=== PATIENT | male | born 1950 | race Caucasian/White ===

== ENCOUNTER 2024-08-26 00:45 | Inpatient (IN) | payer OTHER, SELFPAY ==
[2024-08-25 20:36] VITALS: BP 146/73; BMI 20.5
[2024-08-25 20:56] LABS: % Basophils 0.5 % (0-2); % Eosinophils 2.4 % (0-6); % Immature Granulocytes 0.6 % (0-0.5); % Lymphocytes 23.3 % (20.5-51.1); % Monocytes 9.9 % (1.7-9.3); % Neutrophils 63.3 % (42.2-75.2); Absolute Basophils 0.1 10^3/uL (0-0.2); Absolute Eosinophils 0.3 10^3/uL (0-0.7); Absolute Immature Granulocytes 0.1 10^3/uL (0-0.05); Absolute Lymphocytes 2.5 10^3/uL (1.2-3.4); Absolute Monocytes 1.1 10^3/uL (0.1-0.6); Absolute Neutrophils 6.9 10^3/uL (1.4-6.5); Hematocrit 37.7 % (39.0-52.0); Hemoglobin 13.3 g/dL (13.0-18.0); Mean Corp Hgb Conc. 35.3 g/dL (33.0-37.0); Mean Corpuscular Hgb 34.1 pg (27.0-31.0); Mean Corpuscular Volume 96.7 fL (80.0-94.0); Mean Platelet Volume 9.1 fL (7.4-10.4); Nucleated Red Blood Cells % 0 % (-); Platelet Count 206 10^3/uL (130-400); Red Cell Dist. Width 12.4 % (11.5-14.5); White Blood Cell Count 10.9 10^3/uL (4.8-10.8)
[2024-08-25 20:57] LABS: Glucose - Point of Care 119 mg/dl (70-99)
[2024-08-25 21:11] LABS: Blood Urea Nitrogen 18 mg/dl (9-20); Calcium 9.2 mg/dl (8.4-10.2); Carbon Dioxide 29 mmol/L (22-30); Chloride 99 mmol/L (98-107); Estimated Creatinine Clearance 106 ml/min; Glucose 122 mg/dl (70-99); Sodium 134 mmol/L (135-145); eGFR > 60.00
--- NOTE | 2024-08-25 21:14 | ED.GENMED ---
History of Present Illness
General
Chief Complaint: Change in Mental Status
Source: patient, family and ambulance crew
Time Seen by Provider: 08/25/24 20:41
History of Present Illness
History of Present Illness:
73-year-old male presents via ambulance for evaluation of a possible syncopal event. Patient noted also to have new onset right sided facial droop after this event. Patient has been residing with his son recently. He is under evaluation for.
Thinks she has some cognitive decline recently. Tonight he had a couple hits off of a marijuana cigarette. Shortly thereafter he seemed to be confused. He seemed to lean forward and then perhaps passed out. He regained consciousness after a few
seconds and then seemed confused. He was noted to have right facial droop at that time. 911 was called. On arrival here to the emergency room the patient is awake but does seem confused or under the influence of marijuana. He is able to answer
most questions appropriately. He follows commands. He offers no complaints.
Past History
Past History
ED Past Medical History: HTN, Hypercholesterolemia, NIDDM and Other (: Polyps, right bundle branch block)
ED Past Surgical History: Other (Hernia, carpal tunnel)
Social History
Tobacco: Smoker
Family History
Family History: CAD
Phy Exam
Physical Exam
Physical Exam:
General: Awake, Alert, Oriented X2. Seems somewhat confused or under the influence of marijuana but able to answer most questions appropriately
Vitals: unremarkable
Head: Atraumatic
Eyes: Pupils equal, EOMI
Throat: Airway intact, no exudates
Neck: Trachea midline
Lungs: Clear and equal b/l
Heart: Regular rate, no murmurs
Abd: Soft, Nontender, No pulsatile mass
Neuro: Very mild right facial droop, muscle strength equal bilaterally, cerebellar exam normal
Skin: Warm, dry, no rash
Extremities: pulses equal b/l, no edema
Scores
NIH Stroke Score
Level of Consciousness: 0 - Alert
LOC Questions: 0-Answers both correctly
LOC Commands: 0-Performs both correctly
Best Horizontal Gaze: 0-Normal
Visual [place]: 0=Normal, no visual loss
Facial Palsy: 1=Minor paralysis
Motor - Right Arm: 0=No drift 10 seconds
Motor - Left Arm: 0=No drift 10 seconds
Motor - Right Le-No drift 5 seconds
Motor - Left Le-No drift 5 seconds
Limb Ataxia: 0-Absent
Sensation: 0-Normal
Best Language: 0-No aphasia
Dysarthria: 1-Mild slurring
Extinction and Inattention: 0-No abnormality
NIH Total Score:: 2
Course
Orders/Labs/Results
Orders:
Orders
08/25/24 20:47
Electrocardiogram (*1) Urgent
Reason for Study: Other
Other Reason for Exam: change in mental status
08/25/24 20:48
EKG- Treatment ONCE
08/25/24 20:50
Basic Metabolic Panel Urgent
Complete Blood Count/With Diff Urgent
08/25/24 20:53
CT HEAD STROKE ALERT W/o Cont Urgent
Comment:
Reason For Exam: right facial droop
CT HEAD/NECK ANG STROKE ALERT Urgent
Comment:
Reason For Exam: right facial droop
08/25/24 21:19
Comprehensive Metabolic Panel Urgent
08/25/24 22:19
Aspirin Chewable [Low Strength Aspirin] 324 mg PO NOW STA
08/25/24 23:00
Flush (0.9% Sodium Chloride) [Flush (Nss)] See Dose Instructions IV PER PROTOCOL
Abnormal Lab Results
08/25/24 08/25/24 08/25/24
20:50 20:55 21:19
WBC 10.9 H 10^3/uL
(4.8-10.8)
RBC 3.90 L 10^6/uL
(4.70-6.10)
Hct 37.7 L %
(39.0-52.0)
MCV 96.7 H fL
(80.0-94.0)
MCH 34.1 H pg
(27.0-31.0)
Abs Immat Gran (auto) 0.1 H 10^3/uL
(0-0.05)
Absolute Neuts (auto) 6.9 H 10^3/uL
(1.4-6.5)
Absolute Monos (auto) 1.1 H 10^3/uL
(0.1-0.6)
Immature Gran % 0.6 H %
(0-0.5)
Monocytes % 9.9 H %
(1.7-9.3)
Sodium 134 L mmol/L 133 L mmol/L
(135-145) (135-145)
Chloride 97 L mmol/L
(98-107)
Carbon Dioxide 32 H mmol/L
(22-30)
Creatinine 0.5 L mg/dL 0.6 L mg/dL
(0.7-1.3) (0.7-1.3)
Glucose 122 H mg/dl 117 H mg/dl
(70-99) (70-99)
Total Protein 6.1 L g/dl
(6.3-8.2)
POC Glucose 119 H mg/dl
(70-99)
08/25/24 20:50
08/25/24 21:19
Vital Signs
Initial and Last Documented VS:
Initial Vital Signs
Temp Pulse Resp BP Pulse Ox
98.5 F 86 18 146/73 96
08/25/24 20:36 08/25/24 20:36 08/25/24 20:36 08/25/24 20:36 08/25/24 20:36
Last Documented Vital Signs
Temp Pulse Resp BP Pulse Ox
98.5 F 86 18 146/73 96
08/25/24 20:36 08/25/24 20:36 08/25/24 20:36 08/25/24 20:36 08/25/24 20:36
MDM/Problems Addressed
Differential Diagnosis Includes:
CVA, TIA, dysrhythmia, altered mental status for marijuana
MDM/Problems Addressed:
Patient presents with possible syncope versus effects of marijuana. Family does note that he has a new right-sided facial droop. NIH score is 1-2 with a mild right facial droop and perhaps slurred speech. CT and CTA were obtained. No acute
abnormalities on the plain CT. CT angiogram shows significant left carotid stenosis. In my estimation the patient's NIH score is below the threshold to give tPA particular given he is not having any debilitating effects. His NIH score is
certainly below the threshold for IAT. I discussed the patient's presentation with the stroke fellow on-call at [place] who agrees with my assessment. He recommends hospitalization for further neurology workup and potential vascular surgery workup
given degree of left carotid stenosis on the CTA..
Chronic conditions affecting care: DM and HTN
*Radiology
Radiology exam reviewed: radiology read reviewed
*Pulse Oximetry
Patient hypoxic: no
*EKG
Interpretation: normal
Heart Rate: 81
Rate: normal
Rhythm: sinus
[place]: normal axis
Interval: normal interval
QRS Pattern: right bundle branch block
Ischemia: non-specific ST changes
*Senior Web Architect Interpretation
Rate: normal
Interpretation: normal
Rhythm: sinus
*Critical Care Note
Total Time (30-74mins, 75-104mins- exclusive of procedures): 42min
comment:
Critical care statement: A total of 42 minutes of critical care time was provided for this patient. This includes management of unstable vital signs, evaluation of the patient at bedside, reviewing the patient's pertinent medical records, discussion
with consultants, review of old EKGs and review of pertinent medical records. This time with separate from time utilized to perform the aforementioned documented procedures
ED Attending Note
-
Portions of this chart may have been created with voice recognition software.� Occasional wrong word or��sound alike� substitutions may have occurred due to the inherent limitations of voice recognition software.
Discharge Plan
Departure
Patient Disposition: Admit
Date of Disposition: 08/25/24
Time of Disposition: 22:16
Admit to: Telemetry
Presentation/result/management discussed w/ accepting MD/DO: Hospitalist
Condition: Fair
Discharge Problem:
Syncope, Brain TIA
Referrals:
Walt Saldivar MD [Family Provider] -
Interventions
Interventions:
*Risk Screen - Suicide Last Done: 08/25/24 20:36
*General Assessment Last Done: 08/25/24 20:36
*Neglect/Abuse Screening Last Done: 08/25/24 20:36
*ED- Fall Risk Assessment Last Done: 08/25/24 20:36
*ED COVID-19 Vaccine History Last Done: 08/25/24 20:36
ED- Neurological Assessment Last Done: 08/25/24 21:11
ED Swallowing Screen Last Done: 08/25/24 21:11
Discharge Date and Time
Print Language: AUSTRALIAN
[2024-08-25 21:47] LABS: ALT (SGPT) 49 U/L (0-50); AST (SGOT) 31 U/L (17-59); Albumin 3.9 g/dl (3.5-5.0); Alkaline Phosphatase 75 U/L (38-126); Blood Urea Nitrogen 18 mg/dl (9-20); Carbon Dioxide 32 mmol/L (22-30); Chloride 97 mmol/L (98-107); Estimated Creatinine Clearance 106 ml/min; Glucose 117 mg/dl (70-99); Potassium 4.3 mmol/L (3.5-5.1); Sodium 133 mmol/L (135-145); Total Bilirubin 0.3 mg/dl (0.2-1.3); Total Protein 6.1 g/dl (6.3-8.2); eGFR > 60.00
[2024-08-25] MEDS: LOW STRENGTH ASPIRIN 324 MG PO (22:34)
--- NOTE | 2024-08-25 22:48 | HPS.HSE ---
Family Physician
-
Family Physician: Walt Saldivar MD
Chief Complaint
-
Right facial droop
History of Present Illness
73-year-old male via ambulance from his home in [place] where he has been residing with his son recently as he is under evaluation for cognitive decline recently. He reportedly took a couple hits off a marijuana cigarette then shortly after
seemed confused, seem to lean forward then possibly passed out for a few seconds after he regained consciousness he was still confused noted to have a right facial droop that is when his son called 911. The patient was found in the ER exam room out
of his bed ripping off monitor leads asking' why am I here'. Patient was told he was sent here for a stroke had a facial droop. Patient keeps repetitively asking why he is here he knows he is at [facility] he is oriented to year and
president [place] he thinks it is Tuesday he cannot recall anything that he did last. He tells me he lives with his ex- named Sharri. He also states that he drinks Coors light 32 ounces at least 4 days a week. Medical history of hypertension,
hyperlipidemia, seasonal allergies, anxiety, alcohol abuse, marijuana use, DM2, right CEA/carotid stenosis
Medical History
Past Medical History
Past Medical History: Reports Other
Additional Past Medical History:
hypertension
hyperlipidemia
seasonal allergies
anxiety
alcohol abuse
marijuana use
DM
right CEA/carotid stenosis
Past Surgical History: Reports Other
Additional Past Surgical History:
Hernia repair
Carpal tunnel repair
Right CEA
Social History
Tobacco: Smoker (Smokes cigars now prior 45-year 1 pack a day [place] cigarettes)
Drug: Marijuana (Smoked marijuana today)
Living: With Family (Currently living with his son while from his )
Employment: Not Employed
Family History
Family History: Other (Believes his brother)
Allergies / Home Medications
Allergies reflects when Allergies were last updated in [employer].
Home Medications with original date entered in [employer]
Allergy/Medication List:
Allergies
Allergy/AdvReac Type Severity Reaction Status Date / Time
No Known Allergies Allergy Verified 08/25/24 20:36
Home Medications
Aspir-81 10 mg PO DAILY 08/25/24
Flonase Allergy Relief 1 spray inhalation DIRECTED PRN Rhinorrhea 08/25/24
atorvastatin 40 mg tablet (Lipitor) 40 mg PO DAILY 08/25/24
citalopram 40 mg PO DAILY 08/25/24
clonazepam 0.5 mg PO DAILY PRN Anxiety 08/25/24
diltiazem HCl 0 mg PO DAILY 08/25/24
ezetimibe 10 mg PO DAILY 08/25/24
fexofenadine 180 mg PO DAILY PRN Seasonal allergies 08/25/24
lisinopril 10 mg PO DAILY 08/25/24
metformin 500 mg PO BID 08/25/24
Review of Systems
-
History Source: Patient
A 12 point ROS was completed and negative except as noted: Yes
Constitutional: Reports Other (Confusion asking why am I here thinks it is Tuesday cannot recall the last thing he did does know was 2024); Denies Fever or Chills
EENT: Denies Tearing or Runny Nose
Respiratory: Denies Cough or Trouble Breathing
Cardiac: Denies Chest Pain, Diaphoresis, Palpitations or Syncope
Abdomen/GI: Denies Abdominal Pain, Nausea or Vomiting
: Denies Dysuria, Frequency, Flank Pain, Incontinence or Difficulty Voiding
Musculoskeletal: Denies Joint Pain or Edema
Skin: Denies Itching or Rash
Neurological: Reports Other (Confusion repeating Y SD here); Denies Dizzy or Headache
Endocrine: Reports No Symptoms
Hematologic/Lymphatic: Reports No Symptoms
Psych: Reports Anxiety
Physical Exam
Vital Signs
Vital Signs
Temp Pulse Resp BP Pulse Ox
98.5 F 86 18 146/73 96
08/25/24 20:36 08/25/24 20:36 08/25/24 20:36 08/25/24 20:36 08/25/24 20:36
Physical Exam
General: Other (Confusion asking why am I here thinks it is Tuesday cannot recall the last thing he did does know was 2024)
HEENT: NormoCephalic, Anicteric, Moist mucous membranes, PERRLA, [place] Conjunctivae and No Ptosis
Respiratory: Clear; No Wheezes, Rales or Rhonchi
Cardiac: S1/S2 and Regular Rhythm; No Murmur, Rub, Gallop or Peripheral Edema
GI: Soft, Non Tender, Non Distended, Normal Bowel Sounds and No Hepatosplenomegaly
Rectal: Deferred by Provider
Genito-urinary: Deferred by me
Musculoskeletal: No Clubbing, No Cyanosis and No Edema
Skin: Warm; No Rash
Neuro: Awake, Alert, Oriented (Confusion asking why am I here thinks it is Tuesday cannot recall the last thing he did does know was 2024), No Motor Deficits, Nonfocal/grossly intact, Cranial Nerves Intact and No Sensory Deficits; No Slurred Speech,
Facial Droop, Tremors or Sedated
Psych: Calm
Laboratory Results
-
08/25/24 20:50
08/25/24 21:19
Laboratory Results
Total Bilirubin 0.3 mg/dl (0.2-1.3) 08/25/24 21:19
AST 31 U/L (17-59) 08/25/24 21:19
ALT 49 U/L (0-50) 08/25/24 21:19
Alkaline Phosphatase 75 U/L (38-126) 08/25/24 21:19
Impression/Plan
-
Admit to telemetry
#Right facial droop concern for CVA due to CRITICAL STENOSIS >90% LEFT CAROTID BULB / PROXIMAL LEFT ICA
Aspirin 324 mg given in ER
-Continue aspirin 81 mg daily, Lipitor 40 mg every afternoon
- Consult neurology
- Consult vascular surgery
- Check lipid profile, HgbA1c
-MRI brain
CT head and neck: Moderate irregularity and MOD NARROWING of a LEFT MCA anterior M2 branch
No focal aneurysm
Nasal septal perforation scattered ethmoid maxillary sinus mucosal thickening
Angiogram neck: Critical stenosis> 90% of the LEFT carotid bulb and Proximal Left ICA
Moderate atheromatosis calcification left carotid bulb and proximal internal carotid artery greater than 90% narrowing,
near occlusion of the bulb and proximal ICA
Multiple vascular clips about the right carotid bulb and proximal ICA
Calcification with severe narrowing at the origin of the left vertebral artery
Degenerative changes of the spine
Numerous tiny peripheral nodules in the visualized upper lungs
Moderate distention of the esophagus with small amount of intraluminal debris in the visualized upper thorax,
correlate with underlying esophageal dysmotility or reflux
#Acute confusion possibly secondary to CVA versus Marijuana use
#? Cognitive impairment according to ER chart is staying with son being worked up for this
- Per son smoked a Marijuana cigarette then became confused and fell
- Check UDS
- Give Ativan 0.5 mg now as patient is attempting to climb out of bed
#Alcohol abuse
Patient reports 32 ounce beer at least 4 times a week
-Check alcohol level due to current confusion
MSAs screen with protocol
#HTN�benign
BP 146/73
- Continue lisinopril 10 mg daily
#HLD
- Check lipid profile
- Continue atorvastatin 40 mg daily
#DM 2
Accu-Cheks with SSI, check HgbA1c
Hold metformin 500 mg twice daily(patient picked up on 07/20/2024 at [facility])
Active smoker
- Cessation advised
Prior cigarette smoker [place] 1 pack a day x 45 years
RBBB Hx
Dvt proph
Lovenox
Unable to reach patient's ex- he lives with Sharri as he goes straight to filled voicemail Impression/plan:
[2024-08-26] VITALS (9 sets, daily range): BP systolic 98–135; BP diastolic 60–83; PULSE 85; O2SAT 95; BMI 20.3
--- NOTE | 2024-08-26 00:12 | W.PN.UPDATE ---
Update Note
Progress Note Update
Patient seen in conjunction with CHRISTINA. I agree the findings and physical. I concur with assessment plan.
Briefly, this is 73-year-old who has past medical history of a carotid stenosis presents status post prior right carotid endarterectomy, hyperlipidemia, hypertension and [id number] diabetes who presents to the emergency department with
altered mental status and possible right facial droop. Patient is a very poor historian and unable to provide much history. Apparently he had obstructive sleep smoke something that contained marijuana and immediately after this episode he
collapsed to the floor and was unresponsive for very brief period. Nobody noted any seizure-like activity. When he came back to he became very very confused and was transferred to the emergency department. He apparently lives with his significant
other who was not available at the emergency room or by phone. In the emergency room was moving all fours spontaneously and he had no focal deficits. However he remained quite confused and vigilant and agitated. He was very forgetful, very alert
but only oriented to person and place at this time. He was able to briefly describe some of his medications before he became very frustrated. He denied any other symptoms. We able to get history of alcohol use with the patient saying that he
drinks about 32 ounces of light beer almost daily or at least 4 times a week. He has no recollection of any history of withdrawal or withdrawal seizures.
In the emergency department the patient was afebrile, blood pressure was 146/65 with a pulse of 86 and was satting 96% on room air. ECG pending. CT of the head was unremarkable. He had a CT angio of the head and neck which shows a greater than
90% stenosis in the distribution of the left internal carotid artery near the carotid bulb. CBC was unremarkable stop electrolytes BUN/creatinine were stable. LFTs were normal.
Assessment and plan,
patient with altered mental status, possible syncopal episode, found to have a slight right facial droop with critical left internal carotid artery stenosis on CT angio. Cannot rule out CVA. There is also the possibility of chronic memory loss
secondary to undiagnosed dementia with some toxic metabolic encephalopathy and alcohol withdrawal.
CVA
- Admit to telemetry
- Aspirin 324 given
- Continue statin and aspirin 81 daily
- Plavix per neuro in the morning
- MRI, echo
- Neurochecks Q6
-Check lipid panel and A1c
- Speech and swallow eval
- PT OT
- Neurology consultation
Carotid stenosis -greater than 90% stenosis in the left internal carotid artery
- Aspirin/statin
- Likely will need Plavix
- Vascular consultation
EtOH -chronic use likely dependent, no known history of withdrawal. Patient is fairly hypervigilant at this time although confused
- EtOH last use unknown, levels pending
- Start with low-dose M/protocol and titrated as needed
-IV fluids with
- Thiamine and folate supplementation
Toxic metabolic encephalopathy/confusion
- Urine drug screen
- UA
- TSH, B12, folate levels
- Check RPR
Diabetes
-Hold metformin x 48 hours
-Sliding scale insulin for now
Hypertension
-Holding diltiazem unknown dose, cannot confirm with pharmacy at this time
-Continue with lisinopril 10 mg daily
Social
- Unable to reach family member, may need case management or social work for next of kin
DVT prophylaxis - lovenox
CODE STATUS�full code
[2024-08-26] MEDS: NSS (PRESERVATIVE FREE) 0.25 ML IV (00:21)
[2024-08-26] MEDS: ATIVAN 0.5 MG IV (00:21)
[2024-08-26 00:34] LABS: Alcohol None Detected
[2024-08-26 00:58] LABS: Troponin I < 0.012 ng/ml
[2024-08-26] MEDS: ATIVAN 1 MG IV (01:35)
[2024-08-26] MEDS: THIAMINE INJECTION 200 MG IV ×3 (02:39→15:02)
[2024-08-26 03:43] LABS: Glucose - Point of Care 138 mg/dl (70-99)
[2024-08-26 04:49] LABS: Hematocrit 36.9 % (39.0-52.0); Mean Corp Hgb Conc. 35.2 g/dL (33.0-37.0); Mean Corpuscular Hgb 33.6 pg (27.0-31.0); Mean Corpuscular Volume 95.3 fL (80.0-94.0); Mean Platelet Volume 8.9 fL (7.4-10.4); Platelet Count 207 10^3/uL (130-400); Red Blood Cell Count 3.87 10^6/uL (4.70-6.10); Red Cell Dist. Width 12.4 % (11.5-14.5); White Blood Cell Count 13.2 10^3/uL (4.8-10.8)
[2024-08-26 04:51] LABS: Urine Albumin Negative (Neg - Trace); Urine Bilirubin Negative (Negative); Urine Character Clear (Clear); Urine Color Yellow; Urine Glucose Negative (Negative); Urine Ketone Negative (Negative); Urine Leukocyte Negative (Negative); Urine Nitrite Negative (Negative); Urine Occult Blood Negative (Negative); Urine Specific Gravity 1.005 (<1.030); Urine Urobilinogen Negative (Neg - 1+)
[2024-08-26 04:59] LABS: INR 0.99; PT 13.4 Sec (11.4-14.6)
--- NOTE | 2024-08-26 04:59 | PTCARENOTE ---
Patient arrived from the ED via stretcher at approximately 0145. Patient pulled over from stretcher to bed x3 assist. Patient AAOx1 - self only. Patient confused with periods of restlessness and drowsiness and not consistently following commands.
Patient with possible hallucinations as patient was grabbing at things that were not there. NIH completed upon admission - NIH score of 7 - See worklist for complete assessment. CLIENT EXPERIENCE ADMINISTRATOR notified of difference in NIH score from ED. CLIENT EXPERIENCE ADMINISTRATOR to bedside to assess
patient. No new orders at that time. VSS as documented. Assessment as documented. Patient oriented to room. Bed in lowest position. Bed alarm in place for patient safety. Call antonio within reach.
[2024-08-26 05:00] LABS: APTT 29.4 Sec (23.4-35.0)
[2024-08-26 05:06] LABS: Amphetamines Negative (Negative); Barbiturates Negative (Negative); Benzodiazepines Positive (Negative); Buprenorphine Negative (Negative); Cocaine Negative (Negative); Marijuana Positive (Negative); Methadone Negative (Negative); Methamphetamines Negative (Negative); Opiates Negative (Negative); Phencyclidine Negative (Negative); Tricyclic Antidepressants Negative (Negative)
[2024-08-26 05:09] LABS: Blood Urea Nitrogen 15 mg/dl (9-20); Calcium 9.3 mg/dl (8.4-10.2); Carbon Dioxide 32 mmol/L (22-30); Chloride 99 mmol/L (98-107); Estimated Creatinine Clearance 105 ml/min; GGTP < 10 U/L (15-73); Glucose 108 mg/dl (70-99); Phosphorus 4.9 mg/dl (2.5-4.5); Potassium 4.5 mmol/L (3.5-5.1); Sodium 134 mmol/L (135-145); eGFR > 60.00
[2024-08-26 05:17] LABS: B-Hydroxybutyrate 0.16 mmol/L (0.02-0.27)
[2024-08-26 05:23] LABS: Troponin I < 0.012 ng/ml
[2024-08-26 05:26] LABS: Fentanyl, Urine Negative (Negative)
[2024-08-26 07:45] LABS: Glucose - Point of Care 126 mg/dl (70-99)
[2024-08-26] MEDS: CELEXA 40 MG PO (08:04)
[2024-08-26] MEDS: ASPIR LOW (ENTERIC COATED) 81 MG PO (08:04)
[2024-08-26] MEDS: FOLVITE 1 MG PO (08:04)
[2024-08-26] MEDS: LIPITOR 40 MG PO (08:16)
[2024-08-26] MEDS: ZESTRIL PO (08:16)
[2024-08-26] MEDS: DESENEX/MITRAZOL/ZEASORB 1 APPLIC TOPICAL ×2 (08:18→19:39)
--- NOTE | 2024-08-26 09:57 | CON.VAS ---
Consultation
Consultation Request
Date/Time Consultation Performed: 08/26/24
Requesting Provider: Milton
Performing Provider: Mikel
Reason for Consultation: Left carotid stenosis
Medical History
-
Chief Complaint: down - called 911 (son called)
History of Present Illness:
Note patient unable to give me or provide me any history. Patient's son, Rick, at bedside provided history. 73-year-old male with known history of chronic progressive dementia is living currently with his son Rick secondary to patient's
having suffered a fracture and they are needing assistance. Rick noted that yesterday they were sitting on the deck, when suddenly patient seemed to be slumping downward forward. Unable to straighten himself. Kept repeating the phrase 'broken
glass.' Rick tried to sit him up and straighten him, but then patient appeared to pass out. Called 911. Paramedics arrived and while he was being transported patient more responsive. But still not clearly responding or answering questions. Per
patient's son, he does have progressive dementia and therefore memory issues as well as overall cognitive loss. However, this episode was an acute and different episode. Rick did not notice any unilateral numbness or weakness at the time
definitively. Per hospital charting there are notes regarding facial droop. When I asked Rick about whether the patient had a facial droop, he was a little unclear as to whether he had it at that time but he does note that the patient has
episodes where his face appears to be asymmetric and when he questions his dad about it his dad notes that his lips are dry. Patient has had a history of right carotid endarterectomy prior for what sounds like asymptomatic carotid stenosis. This
was in 2019. They had discussed revascularizing left carotid. However pandemic occurred, and then this got put on hold.
Note his son relayed to me that patient has been told he has peripheral arterial disease, and they have been keeping an eye on it, but no interventions were rendered prior. No coronary interventions or NH per the patient's son Rick.
Past Medical History
Past Medical History: HTN, Hypercholesterolemia and Other (Chronic progressive dementia)
Past Surgical History: Other (Right carotid endarterectomy, Hernia, carpal tunnel)
Social History
Tobacco: Smoker (currently <1ppd, per son prior up to 1ppd )
Alcohol: Former (Prior drank up to 6pack of beer daily)
Family History
Family History: Unable to Obtain
Allergies / Home Medications
Allergy/AdvReac Type Severity Reaction Status Date / Time
No Known Allergies Allergy Verified 08/25/24 20:36
�Medication �Instructions �Recorded �Confirmed �Type
Aspir-81 10 mg PO DAILY 08/25/24 08/25/24 History
Flonase Allergy Relief 1 spray inhalation DIRECTED PRN 08/25/24 08/25/24 History
Rhinorrhea
atorvastatin 40 mg tablet (Lipitor) 40 mg PO DAILY 08/25/24 08/25/24 History
citalopram 40 mg PO DAILY 08/25/24 08/25/24 History
clonazepam 0.5 mg PO DAILY PRN Anxiety 08/25/24 08/25/24 History
diltiazem HCl 0 mg PO DAILY 08/25/24 08/25/24 History
ezetimibe 10 mg PO DAILY 08/25/24 08/25/24 History
fexofenadine 180 mg PO DAILY PRN Seasonal 08/25/24 08/25/24 History
allergies
lisinopril 10 mg PO DAILY 08/25/24 08/25/24 History
metformin 500 mg PO BID 08/25/24 08/25/24 History
Physical Exam
Vital Signs
Temp Pulse Resp BP Pulse Ox
97.1 F 71 16 109/71 94
08/26/24 07:35 08/26/24 08:16 08/26/24 07:35 08/26/24 08:16 08/26/24 07:35
He is awake. He is lethargic. He slightly arouses when I try to wake him. But I cannot get a reasonable neurologic exam. He appears to move all extremities but I cannot say definitively. His feet are both warm without rubor or ulcerations. I
difficulty examining femoral pulses as he kept moving on me.
Lab Results
08/26/24 04:31
08/26/24 04:32
Troponin I < 0.012 ng/ml 08/26/24 04:31
Physical Exam
General: Other (Lethargic, not communicative currently)
HEENT: Normocephalic, Anicteric and Moist Mucous Membranes
Respiratory: Non Labored Respirations
Skin: Warm and Dry
Neuro: Other (see above)
Assessment / Plan
-
Left carotid artery stenosis. I reviewed his CT scan that demonstrates heavy bulky calcified chronic plaque at the left proximal internal carotid artery. Very heavy plaque, likely results in severe stenosis. But this appears all chronic. Does
not appear to have soft plaque elements from what I can ascertain. Based on his symptomatology and presentation (confounded with underlying baseline dementia), I am not sure that this is a focal neurologic event but I cannot say for sure. What I
would recommend is that neurology sees him and assesses him for a focal neurologic event. I would agree with an MRI. Per the patient's son he did complete an MRI a couple weeks ago as ordered by the primary care team for evaluation due to his
chronic dementia. At that time there was no evidence of any infarcts. However would definitely proceed with MRI now. Discussed with Rick that if it is felt that his symptoms have resulted from left carotid stenosis, may benefit from
revascularization, and would favor carotid endarterectomy based on the appearance of his plaque. Discussed with Rick that I would discuss further with him if carotid endarterectomy is recommended. However again we will await neurology evaluation
and full medical optimization. If requires revascularization, likely would plan surgery 08/29/2024. But again we will await further workup.
Data Reviewed
-
CT Scan: Image Personally Visualized and interpreted and Report Reviewed by me
Ultrasound: Discussed with Family
--- NOTE | 2024-08-26 11:16 | CM ---
Patient in MRI. Initial assessment completed with son, Rick. Patient and his ex- live in a 2 story project coach house with B/B on 2nd, no 1/2 bath on 1st, with 2 steps to enter. [employer] patient was independent in ADL's and ambulation. He does drive
short distances. Has a CPAP and does use most of the time. No other DME. No services in the home. Not working. No HC POA. No service. Support system is ex-, son and 2 daughters.
One daughter lives in the area, the other in [place]. Ex- recently broke her leg. Son reports that in the past patient drank heavily but now drinks occasionally if out to dinner etc. Son also reports that patient is being worked up for dementia
with PCP. Patient is forgetful and gets confused. Repeatedly asks same questions. Patient and ex- live on SSI only. They do pay their bills but at times the children assist with money for food. Son requested advanced directive packet for
patient and ex-. CM explained that patient must be able to respond to questions and understand the content. Forms are not to be completed for the patient. Expressed understanding. Also provided the [employer] website. PCP is Dr. Godoy
[facility] and Pharmacy is [facility] in [place]. Discharge POC: TBD. Waiting for therapy evaluation.
--- NOTE | 2024-08-26 11:24 | PTCARENOTE ---
Patient AAO to self this AM, mild R facial droop and exp aphasia - see NIH documentation. Patient for brain MRI this AM, assist x1-2 stand and pivot to stretcher, generalized weakness. PT/OT and speech consults in place, patient with no diet order
at this time, took pills whole/crushed in applesauce with sips of water this AM with this RN, tolerated PO medications but drowsy/needs frequent verbal/tactile stimuli to stay awake during care. Patient with no diet until speech eval per MD. Patient
NSR on tele monitor, VSS, mixed continence of urine, able to use urinal this AM with tech. Vascular in to see patient this AM, son at bedside updated on plan of care.
--- NOTE | 2024-08-26 11:39 | CON.NEURO ---
Neuro Assessment/Plan
Assessment
brain MRI imgs and rept rev'd, mild atrophy and microvascular changes, no stroke
CTA head/neck imgs and rept rev'd, left carotid bulb >90% stenosis
Right facial droop and mild right sided deficits on exam, which could represent TIA, stroke too small to see on MRI, or cerebral hypoperfusion, due to symptomatic left carotid
Spoke with Dr Morin and agree that CEA next week is appropriate.
Moderate dementia.
Plan
continue ASA 81, Lipitor 40
Load Plavix 300, Start Plavix 75
agree CEA
Consultation
Order
Date of Consultation: 08/26/24
Requesting Provider: Mayito Rose
Reason for Consult: TIA
Subjective/Objective
Subjective Data
Date of Service: August 26, 2024
from h&p:
73-year-old male via ambulance from his home in [place] where he has been residing with his son recently as he is under evaluation for cognitive decline recently. He reportedly took a couple hits off a marijuana cigarette then shortly after
seemed confused, seem to lean forward then possibly passed out for a few seconds after he regained consciousness he was still confused noted to have a right facial droop that is when his son called 911. The patient was found in the ER exam room out
of his bed ripping off monitor leads asking' why am I here'. Patient was told he was sent here for a stroke had a facial droop. Patient keeps repetitively asking why he is here he knows he is at [facility] he is oriented to year and
[place] he thinks it is Tuesday he cannot recall anything that he did last. He tells me he lives with his ex- named Sharri. He also states that he drinks Coors light 32 ounces at least 4 days a week. Medical history of hypertension,
hyperlipidemia, seasonal allergies, anxiety, alcohol abuse, marijuana use, DM2, right CEA/carotid stenosis
patient unable to provide much history. His son reports baseline level of function independent with basic ADLs, needs prompting to change clothes/shower, does not do any chores/manage own affairs. Presently mentating similar or slightly worse than
home due to unfamiliar environment
Objective Data
Vital Signs
Temp Pulse Resp BP Pulse Ox
36.8 C 72 16 105/70 95
08/26/24 11:08 08/26/24 11:08 08/26/24 11:08 08/26/24 11:08 08/26/24 11:21
Lab Results
08/26/24 04:31
08/26/24 04:32
PT 13.4 Sec (11.4-14.6) 08/26/24 04:30
INR 0.99 08/26/24 04:30
APTT 29.4 Sec (23.4-35.0) 08/26/24 04:30
Sodium 134 mmol/L (135-145) L 08/26/24 04:32
Potassium 4.5 mmol/L (3.5-5.1) 08/26/24 04:32
BUN 15 mg/dl (9-20) 08/26/24 04:32
Glucose 108 mg/dl (70-99) H 08/26/24 04:32
Calcium 9.3 mg/dl (8.4-10.2) 08/26/24 04:32
Phosphorus 4.9 mg/dl (2.5-4.5) H 08/26/24 04:32
Ur Buprenorphine Negative (Negative) 08/26/24 04:33
Patient Allergies
No Known Allergies Allergy (Verified 08/25/24 20:36)
Physical Exam
-
Awake and alert, disoriented to age/month/place, mildly aphasic, poor recollection of recent events
VFF, EOMI, obvious facial droop on smiling
subtle weakness RUE/LE
mild vibratory loss on the right UE/LE, mild loss of pinprick LUE
DTR 1+ upper, 2+ knees
Medications
-
Active Medications
Generic Name Dose Route Start Last Admin
Trade Name Freq PRN Reason Stop Dose Admin
Acetaminophen 650 mg 08/26/24 01:45
Acetaminophen 325 Mg Tablet PO 09/23/24 01:44
Q4HPRN PRN
mild pain/AMANDA/temp> 100.4F
Aspirin 81 mg 08/26/24 08:00 08/26/24 08:04
Aspirin 81 Mg (Enteric Coated) Tablet PO 09/23/24 07:59 81 mg
DAILY LAURA Administration
Atorvastatin Calcium 40 mg 08/26/24 08:00 08/26/24 08:16
Atorvastatin (Lipitor) 40 Mg Tablet PO 09/23/24 07:59 40 mg
DAILY LAURA Administration
Citalopram Hydrobromide 40 mg 08/26/24 08:00 08/26/24 08:04
Citalopram 20 Mg Tablet PO 09/23/24 07:59 40 mg
DAILY LAURA Administration
Enoxaparin Sodium 40 mg 08/26/24 18:00
Enoxaparin Sodium 40 Mg/0.4 Ml Syringe SC 09/23/24 17:59
QPM LAURA
Folic Acid 1 mg 08/26/24 08:00 08/26/24 08:04
Folic Acid 1 Mg Tablet PO 09/23/24 07:59 1 mg
DAILY LAURA Administration
Folic Acid 1 mg/ Sodium 50.2 mls @ 200.8 mls/hr 08/26/24 01:45
Chloride IV 09/23/24 01:44
DAILYPRN PRN
if NPO
Lisinopril 10 mg 08/26/24 08:00 08/26/24 08:16
Lisinopril 10 Mg Tablet PO 09/23/24 07:59 Not Given
DAILY LAURA
Lorazepam 1 mg 08/26/24 01:45
Lorazepam 1 Mg Tablet PO 09/23/24 01:44
Q2HPRN PRN
MSAS 5-7
Lorazepam 1 mg 08/26/24 01:45
Lorazepam 2 Mg/Ml Vial IV 09/23/24 01:44
Q1HPRN PRN
MSAS 8-11
Lorazepam 2 mg 08/26/24 01:45
Lorazepam 2 Mg/Ml Vial IV 09/23/24 01:44
Q1HPRN PRN
MSAS > 11
Miconazole Nitrate 0 applic 08/26/24 08:00 08/26/24 08:18
Miconazole Powder Bottle TOPICAL 09/23/24 07:59 1 applic
BID LAURA Administration
Sodium Chloride 0 flush 08/25/24 23:00
Sodium Chloride 0.9% (Flush) Syringe IV 09/22/24 22:59
PER PROTOCOL LAURA
Sodium Chloride 0 ml 08/26/24 01:45
Sodium Chloride 0.9% (Preservative Free) 10 Ml Vial IV 09/23/24 01:44
PRN PRN
To dilute IV Ativan
Protocol
Thiamine HCl 200 mg 08/26/24 01:45 08/26/24 08:06
Thiamine (100 Mg/Ml) 2 Ml Vial IV 08/28/24 16:01 200 mg
Q8 LAURA Administration
Thiamine HCl 100 mg 08/29/24 08:00
Thiamine 100 Mg Tablet PO 09/26/24 07:59
BID LAURA
Home Medications
�Medication �Instructions �Recorded
Aspir-81 10 mg PO DAILY 08/25/24
Flonase Allergy Relief 1 spray inhalation DIRECTED PRN 08/25/24
Rhinorrhea
atorvastatin 40 mg tablet (Lipitor) 40 mg PO DAILY 08/25/24
citalopram 40 mg PO DAILY 08/25/24
clonazepam 0.5 mg PO DAILY PRN Anxiety 08/25/24
diltiazem HCl 0 mg PO DAILY 08/25/24
ezetimibe 10 mg PO DAILY 08/25/24
fexofenadine 180 mg PO DAILY PRN Seasonal 08/25/24
allergies
lisinopril 10 mg PO DAILY 08/25/24
metformin 500 mg PO BID 08/25/24
--- NOTE | 2024-08-26 11:49 | W.PN.HOSP.TC ---
Today's Communication/Plan
-
Start IV fluids
Await speech eval
Neurology eval
Monitor blood pressure
Monitor mentation
Assessment / Plan
Assessment / Plan
General: Confused stated he was at [facility], month stated on June. Did not know what year. Looks older than stated age
HEENT: NormoCephalic, Anicteric, Moist mucous membranes, [place] Conjunctivae and No Ptosis
Respiratory: Clear; No Wheezes, Rales or Rhonchi
Cardiac: S1/S2 and Regular Rhythm; No Murmur, Rub, Gallop or Peripheral Edema
GI: Soft, Non Tender, Non Distended, Normal Bowel Sounds and No Hepatosplenomegaly
Rectal: Deferred by Provider
Genito-urinary: Deferred by me
Musculoskeletal: No Clubbing, No Cyanosis and No Edema
Skin: Warm; No Rash
Neuro: Awake, No Motor Deficits, Nonfocal/grossly intact, Cranial Nerves Intact and No Sensory Deficits; No Slurred Speech, Facial Droop, Tremors or Sedated
Psych: Calm
#Right facial droop concern for CVA due to CRITICAL STENOSIS >90% LEFT CAROTID BULB / PROXIMAL LEFT ICA
Aspirin 324 mg given in ER
-Continue aspirin 81 mg daily, Lipitor 40 mg
- Consult neurology
- Consult vascular surgery
- Check lipid profile, HgbA1c
- MRI brain negative for acute infarct
CT head and neck: Moderate irregularity and MOD NARROWING of a LEFT MCA anterior M2 branch. No focal aneurysm. Nasal septal perforation scattered ethmoid maxillary sinus mucosal thickening
Angiogram neck: Critical stenosis> 90% of the LEFT carotid bulb and Proximal Left ICA
# Toxic metabolic encephalopathy likely secondary to marijuana use, alcohol use versus underlying cognitive impairment
- Per son smoked a Marijuana cigarette then became confused and fell
- UDS noted for marijuana and benzos
-Monitor mentation and reorient as necessary. Fall precautions. PT eval.
# Leukocytosis likely reactive
Afebrile. No cough. No urinary symptoms. Monitor for now.
#Alcohol abuse
Patient reports 32 ounce beer at least 4 times a week
-Check alcohol level due to current confusion
MSAs screen with protocol
#HTN�benign
- Continue lisinopril 10 mg daily with hold parameters
#HLD
- Check lipid profile
- Continue atorvastatin 40 mg daily
#DM 2
Accu-Cheks with SSI, check HgbA1c
Hold metformin 500 mg twice daily(patient picked up on 07/20/2024 at [facility])
Active smoker
- Cessation advised
Prior cigarette smoker Qasim 1 pack a day x 45 years
RBBB Hx
Dvt proph
Lovenox
full code
d/w with son at bedside in details
Anticipated Discharge: > 48 hours
Subjective/Interval History
-
Date of Service: August 26, 2024
Remains confused
Patient has been living with his son for the past 4 to 5 weeks and has noticed episodes of memory impairment.
Objective Data
-
Labs:
Laboratory Results
08/26/24 08/26/24 08/26/24
04:30 04:31 04:32
WBC 13.2 H
Hgb 13.0
Hct 36.9 L
Plt Count 207
PT 13.4
INR 0.99
APTT 29.4
Sodium Cancelled 134 L
Potassium Cancelled 4.5
Chloride Cancelled 99
Carbon Dioxide Cancelled 32 H
BUN Cancelled 15
Creatinine Cancelled 0.5 L
Glucose Cancelled 108 H
Calcium Cancelled 9.3
Vital Signs:
Vital Signs
Temp Pulse Resp BP Pulse Ox
98.3 F 72 16 105/70 95
08/26/24 11:08 08/26/24 11:08 08/26/24 11:08 08/26/24 11:08 08/26/24 11:21
I&O
08/25/24 08/26/24 08/27/24
06:59 06:59 06:59
Intake Total 380 / 380
Balance 380 / 380
Data Reviewed
-
Total Time Spent with Patient (in minutes): 55
[2024-08-26 12:03] LABS: Glucose - Point of Care 112 mg/dl (70-99)
[2024-08-26 12:25] LABS: Glycohemoglobin (HgbA1c) 6.4 % (4.0-5.6)
[2024-08-26] MEDS: LR 1000 IV (12:52)
--- NOTE | 2024-08-26 15:00 | PTOTSP ---
ST Acute Care Evaluation
Pt currently presents with clinical signs of mild oral dysphagia characterized by mildly prolonged mastication and bolus formation as well as reduced bolus formation with harder solids, primarily related to loosely fitting dentures that he takes
in/out as needed. Denture adhesive ordered from [facility] and will re-assess once pt utilizing consistently.
Recommendations:
- Initiate PO diet of soft bite sized solids with thin liquids and meds as tolerated.
- Aspiration precautions: HOB upright, small bites/sips, encourage pt to eat/drink slowly, reduce distractions.
- FOUNDRY FINISHER to f/u re: diet tolerance, trial diet upgrades, and encourage compensatory strategies/aspiration precautions.
- FOUNDRY FINISHER to f/u to complete a comprehensive cognitive linguistic evaluation, if desired by MD. However, pt is likely close to his baseline mentation (i.e., MRI Brain negative, pt has only had 2-3 drinks over past 5 weeks - so not in ETOH withdrawal,
but possible Wernicke's encephalopathy?, cognitive decline has been progressive since 2019 and worsening over past 2 years that prompted the OP work-up, R facial droop has been on/off for quite some time - not new). Would recommend OP neuropsych
work-up, as this would be more comprehensive.
[2024-08-26] MEDS: PLAVIX 300 MG PO (17:01)
[2024-08-26] MEDS: LOVENOX 40 MG SC (17:01)
[2024-08-26 17:07] LABS: Glucose - Point of Care 135 mg/dl (70-99)
[2024-08-26] MEDS: NOVOLOG FLEXPEN-LOW RESISTANCE SC (17:14)
--- NOTE | 2024-08-26 17:18 | PTCARENOTE ---
Per neurology, no indication for NIH at this time, continue neuro checks q4hr per order at this time. Patient AAOx1-2 throughout this shift, oriented to self and occasionally oriented to place. Patient restless and confused this shift, frequently
attempting to get out of chair independently, assist x1 and RW per PT/OT d/t unsteady gait and gen weakness. Alarms and IVF in place.
[2024-08-26 21:51] LABS: Glucose - Point of Care 121 mg/dl (70-99)
[2024-08-27] MEDS: THIAMINE INJECTION 200 MG IV ×3 (00:10→16:12)
[2024-08-27 03:14] VITALS: BP 136/76
[2024-08-27 06:00] VITALS: BMI 19.5
[2024-08-27 06:32] LABS: % Basophils 0.6 % (0-2); % Eosinophils 3.1 % (0-6); % Immature Granulocytes 0.3 % (0-0.5); % Lymphocytes 34.5 % (20.5-51.1); % Monocytes 9.9 % (1.7-9.3); % Neutrophils 51.6 % (42.2-75.2); Absolute Eosinophils 0.2 10^3/uL (0-0.7); Absolute Lymphocytes 2.3 10^3/uL (1.2-3.4); Absolute Monocytes 0.7 10^3/uL (0.1-0.6); Absolute Neutrophils 3.5 10^3/uL (1.4-6.5); Hematocrit 37.8 % (39.0-52.0); Hemoglobin 13.3 g/dL (13.0-18.0); Mean Corp Hgb Conc. 35.2 g/dL (33.0-37.0); Mean Corpuscular Hgb 33.3 pg (27.0-31.0); Mean Corpuscular Volume 94.7 fL (80.0-94.0); Mean Platelet Volume 8.8 fL (7.4-10.4); Nucleated Red Blood Cells % 0 % (-); Platelet Count 186 10^3/uL (130-400); Red Blood Cell Count 3.99 10^6/uL (4.70-6.10); Red Cell Dist. Width 12.4 % (11.5-14.5); White Blood Cell Count 6.8 10^3/uL (4.8-10.8)
[2024-08-27 06:48] LABS: Blood Urea Nitrogen 15 mg/dl (9-20); Calcium 9.1 mg/dl (8.4-10.2); Carbon Dioxide 28 mmol/L (22-30); Chloride 104 mmol/L (98-107); Estimated Creatinine Clearance 101 ml/min; Glucose 102 mg/dl (70-99); HDL Cholesterol 59 mg/dl; LDL Cholesterol, Calculated 51 mg/dl; Potassium 3.9 mmol/L (3.5-5.1); Sodium 138 mmol/L (135-145); Total Cholesterol 125 mg/dl (50-199); Triglyceride 75 mg/dl (10-149); Very Low Density Lipoprotein 15 mg/dl (0-30); eGFR > 60.00
[2024-08-27] MEDS: FOLVITE 1 MG PO (07:18)
[2024-08-27] MEDS: LIPITOR 40 MG PO (07:18)
[2024-08-27] MEDS: CELEXA 40 MG PO (07:18)
[2024-08-27] MEDS: ZESTRIL 10 MG PO (07:18)
[2024-08-27] MEDS: PLAVIX 75 MG PO (07:18)
[2024-08-27] MEDS: ASPIR LOW (ENTERIC COATED) 81 MG PO (07:18)
[2024-08-27] MEDS: DESENEX/MITRAZOL/ZEASORB 1 APPLIC TOPICAL ×2 (07:19→19:42)
[2024-08-27 07:20] VITALS: BP 123/62
--- NOTE | 2024-08-27 07:34 | W.PN.HOSP.TC ---
Today's Communication/Plan
-
Possible carotid endarterectomy 08/29
Assessment / Plan
Assessment / Plan
Impression:
73-year-old male was presenting from home with confusion, R facial droop.��Also suspected cognitive impairment underlying.��CT angiogram with left carotid artery stenosis.��MRI negative for stroke
neurology recommending vascular surgery evaluation for symptomatic left carotid artery stenosis.
Vascular surgery with plan for possible CEA 08/29.
Assessment/plan:
Right facial droop concern for CVA due to CRITICAL STENOSIS >90% LEFT CAROTID BULB / PROXIMAL LEFT ICA
Aspirin 324 mg given in ER
-Continue aspirin 81 mg daily, Lipitor 40 mg
- Appreciate neurology and vascular surgery input
- LDL 51, HgbA1c 6.4
- MRI brain negative for acute infarct
CT head and neck: Moderate irregularity and MOD NARROWING of a LEFT MCA anterior M2 branch. No focal aneurysm. Nasal septal perforation scattered ethmoid maxillary sinus mucosal thickening
Angiogram neck: Critical stenosis> 90% of the LEFT carotid bulb and Proximal Left ICA
Vascular surgery recommending plan for possible CEA 08/29.
Acute toxic metabolic encephalopathy likely secondary to marijuana use, alcohol use versus underlying cognitive impairment
- Per son smoked a Marijuana cigarette then became confused and fell
- UDS noted for marijuana and benzos
-Monitor mentation and reorient as necessary. Fall precautions. PT eval.
Leukocytosis likely reactive
Afebrile. No cough. No urinary symptoms. Monitor for now.
improved.
Alcohol abuse
Patient reports 32 ounce beer at least 4 times a week
-Check alcohol level due to current confusion
MSAs screen with protocol
Essential hypertension
- Continue lisinopril 10 mg daily with hold parameters
Hyperlipidemia
LDL 51
Continue atorvastatin 40 mg daily
History of diabetes mellitus
Insulin sliding scale
Diabetic diet
Hemoglobin A1c 6.4
Accu-Cheks with SSI, check HgbA1c
Hold metformin
Active smoker
- Cessation advised
Prior cigarette smoker Qasim 1 pack a day x 45 years
CODE STATUS: Full code
DVT prophylaxis: Lovenox
Diet: Soft and bite-size diet.
Total time spent on today's encounter was 65 minutes which included time spent in counseling the patient/family regarding diagnosis and treatment plan as listed above, goals of care, and symptom management. Case was discussed with nursing staff,
specialists, and care coordinators/case management. All labs and imaging personally reviewed by me. Remainder the time spent in detailed review of previous records, lab data, imaging, and other medical provider documentation.
Anticipated Discharge: > 48 hours
Subjective/Interval History
-
Date of Service: August 27, 2024
Patient seen and examined at bedside, denies any chest pain or shortness of breath.
Objective Data
-
Labs:
Laboratory Results
08/27/24
06:09
WBC 6.8
Hgb 13.3
Hct 37.8 L
Plt Count 186
Sodium 138
Potassium 3.9
Chloride 104
Carbon Dioxide 28
BUN 15
Creatinine 0.6 L
Glucose 102 H
Calcium 9.1
Vital Signs:
Vital Signs
Temp Pulse Resp BP Pulse Ox
97.7 F 67 18 123/62 95
08/27/24 03:14 08/27/24 07:18 08/27/24 03:14 08/27/24 07:18 08/27/24 03:14
I&O
08/26/24 08/27/24 08/28/24
06:59 06:59 06:59
Intake Total 380 / 380 1660 / 1660
Output Total 3500 / 3500
Balance 380 / 380 -1840 / -1840
Physical Exam
-
General: Well Developed, Well Nourished, No Apparent Distress and Comfortable
HEENT: Normocephalic, Atraumatic, Moist Mucous Membranes, No Ptosis, PERRLA and Nose Appears Normal
Respiratory: Clear to Auscultation and Non Labored Respirations
Cardiac: Regular Rhythm and S1/S2
Breast: Deferred by me
GI: Soft, Nontender, Nondistended and Normal Bowel Sounds
Genito-urinary: No Costovertebral Tender
Musculoskeletal: No Clubbing, No Cyanosis and No Edema
Skin: Warm
Neuro: Awake, Alert, Oriented (Not fully oriented) and No Motor Deficits
Psych: Calm
Data Reviewed
-
Diagnostic Radiology: Image personally visualized and interpreted and Report Reviewed by me
CT Scan: Image personally visualized and interpreted and Report Reviewed by me
Ultrasound: Image personally visualized and interpreted and Report Reviewed by me
MRI: Image personally visualized and interpreted and Report Reviewed by me
Medical Tests (Nuc Med, Echo etc): Image personally visualized and interpreted and Report Reviewed by me
Labs: Labs Reviewed by me
Old Records: Reviewed
[2024-08-27 07:38] LABS: Glucose - Point of Care 107 mg/dl (70-99)
[2024-08-27] MEDS: NOVOLOG FLEXPEN-LOW RESISTANCE SC ×2 (07:40→16:16)
--- NOTE | 2024-08-27 07:52 | W.PN.VS ---
Today's Communication / Plan
-
See plan below for today 08/27/2024.
Assessment/Plan
-
High-grade left carotid artery stenosis, discussed with neurology yesterday they feel likely this was symptomatic (resulted in his presenting symptoms). Therefore recommending a left carotid revascularization. I did discuss with patient left
carotid endarterectomy plan. I discussed with patient's son yesterday that if felt by neurologist that this presenting symptoms may be carotid related, then would recommend that. They understand all and are in agreement to proceed. Will discuss
again with patient's son tomorrow. But plan for surgery 08/29/2024. LEFT CEA.
-
Total Time Spent with Patient (in minutes): 10
Subjective Data
-
Date of Service: August 27, 2024
Seen and evaluated. Much more awake today. Communicative and responsive. Appropriately answering questions. He is without complaints this morning.
Objective Data
-
Vital Signs
Temp Pulse Resp BP Pulse Ox
98.1 F 67 18 123/62 96
08/27/24 07:20 08/27/24 07:20 08/27/24 07:20 08/27/24 07:20 08/27/24 07:20
Intake and Output
08/26/24 08/27/24 08/28/24
06:59 06:59 06:59
Intake Total 380 / 380 1660 / 1660
Output Total 3500 / 3500
Balance 380 / 380 -1840 / -1840
Intake:
Oral fluids 380 / 380 1100 / 1100
IV fluids (Total) 560 / 560
Output:
Urine, Voided 3500 / 3500
Other:
Number of approximated MODERATE 1
amounts of urine
Number of approximated LARGE 1
amounts of urine
How many times incontinent 2
SATURATED amount urine
Number of unmeasured liquid
stools
Rectum 1
Lab Results
08/27/24 06:09
08/27/24 06:09
Calcium 9.1 mg/dl (8.4-10.2) 08/27/24 06:09
Phosphorus 4.9 mg/dl (2.5-4.5) H 08/26/24 04:32
Magnesium 2.0 mg/dl (1.6-2.3) 08/26/24 04:32
Total Bilirubin 0.3 mg/dl (0.2-1.3) 08/25/24 21:19
AST 31 U/L (17-59) 08/25/24 21:19
ALT 49 U/L (0-50) 08/25/24 21:19
Alkaline Phosphatase 75 U/L (38-126) 08/25/24 21:19
Total Protein 6.1 g/dl (6.3-8.2) L 08/25/24 21:19
Albumin 3.9 g/dl (3.5-5.0) 08/25/24 21:19
Physical Exam
-
He is awake and alert. Breathing is unlabored. No acute distress. Neurologically moves all extremities well.
[2024-08-27 11:10] VITALS: BP 128/75
[2024-08-27 11:19] LABS: Glucose - Point of Care 183 mg/dl (70-99)
[2024-08-27] MEDS: NOVOLOG FLEXPEN-LOW RESISTANCE 1 UNITS SC (12:51)
[2024-08-27 15:13] VITALS: BP 105/61
[2024-08-27 16:16] LABS: Glucose - Point of Care 93 mg/dl (70-99)
[2024-08-27] MEDS: LOVENOX 40 MG SC (17:02)
[2024-08-27 19:31] VITALS: BP 122/73
[2024-08-27 21:55] LABS: Glucose - Point of Care 125 mg/dl (70-99)
[2024-08-27 23:00] VITALS: BP 122/74
[2024-08-28] VITALS (7 sets, daily range): BP systolic 105–163; BP diastolic 62–89; PULSE 78; O2SAT 95; BMI 19.1
--- NOTE | 2024-08-28 05:43 | PTCARENOTE ---
Pt awake intermittently t/o the night. Pt sets off bed alarm when needing to void. Pt able to stand at bedside with assist to use urinal. Pt easily back to bed and to sleep. Pt confused and easily redirected. No changes in assessment noted at this
time. Will continue to monitor.
[2024-08-28 07:30] LABS: Glucose - Point of Care 117 mg/dl (70-99)
[2024-08-28] MEDS: NOVOLOG FLEXPEN-LOW RESISTANCE SC ×2 (08:16→16:23)
[2024-08-28] MEDS: PLAVIX 75 MG PO (08:46)
[2024-08-28] MEDS: LIPITOR 40 MG PO (08:46)
[2024-08-28] MEDS: FOLVITE 1 MG PO (08:46)
[2024-08-28] MEDS: ZESTRIL 10 MG PO (08:47)
[2024-08-28] MEDS: ASPIR LOW (ENTERIC COATED) 81 MG PO (08:47)
[2024-08-28] MEDS: DESENEX/MITRAZOL/ZEASORB 1 APPLIC TOPICAL ×2 (08:48→20:53)
[2024-08-28] MEDS: THIAMINE INJECTION 200 MG IV ×3 (08:48→17:13)
[2024-08-28] MEDS: CELEXA 40 MG PO (08:48)
--- NOTE | 2024-08-28 10:00 | W.PN.HOSP.TC ---
Today's Communication/Plan
-
CEA in am
Assessment / Plan
Assessment / Plan
Impression:
73-year-old male was presenting from home with confusion, R facial droop.��Also suspected cognitive impairment underlying.��CT angiogram with left carotid artery stenosis.��MRI negative for stroke
neurology recommending vascular surgery evaluation for symptomatic left carotid artery stenosis.
Vascular surgery with plan for possible CEA 08/29.
Assessment/plan:
Right facial droop concern for CVA due to CRITICAL STENOSIS >90% LEFT CAROTID BULB / PROXIMAL LEFT ICA
Aspirin 324 mg given in ER
-Continue aspirin 81 mg daily, Lipitor 40 mg
- Appreciate neurology and vascular surgery input
- LDL 51, HgbA1c 6.4
- MRI brain negative for acute infarct
CT head and neck: Moderate irregularity and MOD NARROWING of a LEFT MCA anterior M2 branch. No focal aneurysm. Nasal septal perforation scattered ethmoid maxillary sinus mucosal thickening
Angiogram neck: Critical stenosis> 90% of the LEFT carotid bulb and Proximal Left ICA
Vascular surgery recommending plan for possible CEA 08/29.
Acute toxic metabolic encephalopathy likely secondary to marijuana use, alcohol use versus underlying cognitive impairment
- Per son smoked a Marijuana cigarette then became confused and fell
- UDS noted for marijuana and benzos
-Monitor mentation and reorient as necessary. Fall precautions. PT eval.
Leukocytosis likely reactive
Afebrile. No cough. No urinary symptoms. Monitor for now.
improved.
Alcohol abuse
Patient reports 32 ounce beer at least 4 times a week
-Check alcohol level due to current confusion
MSAs screen with protocol
Essential hypertension
- Continue lisinopril 10 mg daily with hold parameters
Hyperlipidemia
LDL 51
Continue atorvastatin 40 mg daily
History of diabetes mellitus
Insulin sliding scale
Diabetic diet
Hemoglobin A1c 6.4
Accu-Cheks with SSI, check HgbA1c
Hold metformin
Active smoker
- Cessation advised
Prior cigarette smoker Qasim 1 pack a day x 45 years
CODE STATUS: Full code
DVT prophylaxis: Lovenox
Diet: Soft and bite-size diet.
N.p.o. after midnight for CEA in am.
Total time spent on today's encounter was 65 minutes which included time spent in counseling the patient/family regarding diagnosis and treatment plan as listed above, goals of care, and symptom management. Case was discussed with nursing staff,
specialists, and care coordinators/case management. All labs and imaging personally reviewed by me. Remainder the time spent in detailed review of previous records, lab data, imaging, and other medical provider documentation.
Anticipated Discharge: > 48 hours
Subjective/Interval History
-
Date of Service: August 28, 2024
Patient seen and examined at bedside, denies chest pain or shortness of breath.
For left CEA tomorrow.
Objective Data
-
Vital Signs:
Vital Signs
Temp Pulse Resp BP Pulse Ox
97.8 F 63 16 119/62 97
08/28/24 07:05 08/28/24 07:05 08/28/24 07:05 08/28/24 08:47 08/28/24 07:05
I&O
08/27/24 08/28/24 08/29/24
06:59 06:59 06:59
Intake Total 1660 / 1660 1560 / 1560
Output Total 3500 / 3500 1075 / 1075
Balance -1840 / -1840 485 / 485
Physical Exam
-
General: Well Developed, Well Nourished, No Apparent Distress and Comfortable
HEENT: Normocephalic, Atraumatic, Moist Mucous Membranes, No Ptosis, PERRLA and Nose Appears Normal
Respiratory: Clear to Auscultation and Non Labored Respirations
Cardiac: Regular Rhythm and S1/S2
Breast: Deferred by me
GI: Soft, Nontender, Nondistended and Normal Bowel Sounds
Genito-urinary: No Costovertebral Tender
Musculoskeletal: No Clubbing, No Cyanosis and No Edema
Skin: Warm
Neuro: Awake, Alert, Oriented (Not fully oriented) and No Motor Deficits
Psych: Calm
Data Reviewed
-
Diagnostic Radiology: Image personally visualized and interpreted and Report Reviewed by me
CT Scan: Image personally visualized and interpreted and Report Reviewed by me
Ultrasound: Image personally visualized and interpreted and Report Reviewed by me
MRI: Image personally visualized and interpreted and Report Reviewed by me
Medical Tests (Nuc Med, Echo etc): Image personally visualized and interpreted and Report Reviewed by me
Labs: Labs Reviewed by me
Old Records: Reviewed
--- NOTE | 2024-08-28 10:37 | CM ---
Patient seen at bedside
CM called son Rick
PT rec SNF
Patient agreeable to SNF, facility list given to patient
States will look at & let CM know which facilities to place referrals.
confirmed with patient/son Belinda ins - will need auth
PLAN: SNF, pending bed availability, when medically stable
[2024-08-28 11:33] LABS: Glucose - Point of Care 158 mg/dl (70-99)
[2024-08-28] MEDS: NOVOLOG FLEXPEN-LOW RESISTANCE 1 UNITS SC (12:02)
--- NOTE | 2024-08-28 13:12 | PTCARENOTE ---
MSAS discontinued per protocol. scale rating 0-4 for last 48 hours. pt appropriate within the room.x1 assist in the room, remains on bed and chair alarm. redirectable and has eaten all of his meals so far today. will be NPO at midnight for CEA
tomorrow.
[2024-08-28 14:14] LABS: Syphilis/T. pallidum Ab Reflex Negative (Negative)
[2024-08-28 16:22] LABS: Glucose - Point of Care 99 mg/dl (70-99)
--- NOTE | 2024-08-28 16:51 | W.PN.UPDATE ---
Update Note
Progress Note Update
I discussed plan with patient for left carotid revascularization with left carotid endarterectomy for symptomatic left carotid artery stenosis. However patient is not completely oriented. When I asked where he was he told me 'I am at [employer]'. When I asked the year he did not know as well. He has underlying dementia as I discussed with his son prior. Therefore I did call his son Rick who is his medical proxy. I spoke to Rick at length. I discussed plan for left carotid
revascularization. I discussed alternatives of left carotid stenting (which I do not feel would work well with his bulky plaque) and also medical management with noninvasive therapy. Discussed carotid revascularization with carotid endarterectomy
procedure/technical outcomes. Discussed risks of procedure including but not limited to bleeding, infection, cardiac complication/AL, cranial nerve injury, stroke (1 to 2% in the symptomatic setting). Rick understands all wishes for us to proceed
with left carotid endarterectomy. He also agreed to the blood portion of the consent form (if blood transfusion needed, agrees to it if needed).
[2024-08-28] MEDS: LOVENOX 40 MG SC (17:14)
[2024-08-28 21:49] LABS: Glucose - Point of Care 96 mg/dl (70-99)
[2024-08-29] VITALS (15 sets, daily range): BP systolic 101–147; BP diastolic 59–114; BMI 19.1
[2024-08-29 06:22] LABS: Glucose - Point of Care 108 mg/dl (70-99)
[2024-08-29] MEDS: PERIDEX 0.12% ORAL RINSE 15 ML PO (06:59)
[2024-08-29] MEDS: BACTROBAN 2% OINTMENT 0.5 APPLIC NASAL (06:59)
[2024-08-29 07:04] LABS: Glucose - Point of Care 108 mg/dl (70-99)
--- NOTE | 2024-08-29 07:05 | PTCARENOTE ---
Pt received from 2136 on pt bed, oriented to person and birthdate only, asked 'is it snowing today?', pt reoriented and easily directable, mild right facial droop noted, denies any pain or SOB, vs as documented, lung sounds clear and diminished at
bases, O2 sat 99% on room air, skin intact,warm and dry, palpable peripheral pulses- bilat DPs weak, no edema, abd soft with +BS, denies need to void, #20P inserted in right arm and NSS KVO placed to site, AM labwork sent, accucheck 108, left neck
clipping done, awaiting anesthesiologist
[2024-08-29 07:15] LABS: Hematocrit 44.7 % (39.0-52.0); Hemoglobin 15.4 g/dL (13.0-18.0); Mean Corp Hgb Conc. 34.5 g/dL (33.0-37.0); Mean Corpuscular Hgb 33.6 pg (27.0-31.0); Mean Corpuscular Volume 97.4 fL (80.0-94.0); Mean Platelet Volume 8.4 fL (7.4-10.4); Platelet Count 199 10^3/uL (130-400); Red Blood Cell Count 4.59 10^6/uL (4.70-6.10); Red Cell Dist. Width 12.3 % (11.5-14.5); White Blood Cell Count 6.9 10^3/uL (4.8-10.8)
--- NOTE | 2024-08-29 07:22 | PTCARENOTE ---
Hand off report given to Marysol TAYLOR, pt transferred to vascular OR
--- NOTE | 2024-08-29 07:24 | W.SUR.PREOP ---
Pre-Operative Surgical Note
-
I have examined this patient prior to the performance of the scheduled procedure.
The patient's condition is unchanged from the time of the current History and
Physical and the patient is able to undergo the scheduled procedure.
[2024-08-29 08:00] LABS: Blood Urea Nitrogen 14 mg/dl (9-20); Calcium 9.5 mg/dl (8.4-10.2); Carbon Dioxide 28 mmol/L (22-30); Chloride 104 mmol/L (98-107); Estimated Creatinine Clearance 99 ml/min; Glucose 102 mg/dl (70-99); Potassium 4.3 mmol/L (3.5-5.1); Sodium 140 mmol/L (135-145); eGFR > 60.00
--- NOTE | 2024-08-29 09:19 | W.SUR.POST ---
Surgical Immediate Post Op
Note
Pre Op Diagnosis: Carotid stenosis
Post Op Diagnosis: Same
Procedure Performed: Left carotid endarterectomy with bovine pericardial patch angioplasty
Primary Surgeon: Mikel
Assist: Pankaj VASQUEZ
Anesthesia: General
Estimated Blood Loss: 10cc
Fluids: See anesthesia flow sheet
Drains/Shunts: none
Specimens/Cultures: Carotid plaque
Doppler/Duplex/Angio (Y/N): Y
Complications: None
Operative Findings: Woke from anesthesia moving all extremities
--- NOTE | 2024-08-29 09:39 | OR.RPT ---
Operative Report
Operative Report
PROCEDURE DATE: 08/29/2024
Preoperative diagnosis: Symptomatic critical left carotid artery stenosis.
Postoperative diagnosis: Same
Procedure: Left carotid endarterectomy with bovine pericardial patch angioplasty and intraoperative EEG/SSEP monitoring.
Surgeon: Mikel
Adult Remedial Education Instructor: JAZMINE Lira, required for all aspects of procedure including assistance with traction/countertraction, following of suture line, assistance with closure.
Complications: None
Anesthesia: General
Indications for procedure:
Symptomatic left carotid artery stenosis. Discussed with neurology who felt that his neurologic symptoms were indeed related to his left carotid stenosis. Therefore despite underlying baseline dementia, we felt that for stroke prevention, carotid
revascularization may be of benefit. Risk/benefits/alternatives of were discussed with the patient's medical proxy, his son Rick. Patient and son understood all wished to proceed. I did discuss with the patient as well who expressed willingness
to proceed as well.
Description of procedure:
Patient was identified brought to the operating room placed on the table in supine position. After the adequate administration of anesthesia and perioperative antibiotics he was prepped and draped in the standard surgical fashion. A standard
preoperative timeout was undertaken and everybody was in agreement the plan. A standard longitudinal incision was made in the left neck that was carried through the skin subcutaneous tissue. Using the electrocautery dissection was carried through
the platysma muscle layer and then alongside the anterior medial border of the sternocleidomastoid muscle. Then using a combination of sharp dissection with the Metzenbaum scissors and electrocautery I dissected along the anterior medial border of
the internal jugular vein. The common facial vein branch was ligated between silk ties and then divided. I then deepened my retraction. The common carotid artery was identified and carefully dissected away from the surrounding structures take
great care to avoid any injury to the structures. A vessel loop was passed around it which was double looped, but not yet tightened. Note the vagus nerve was clearly visualized coursing on the anterior/anterior lateral surface of the common
carotid artery, and prior to circumferential dissection of the common carotid artery the nerve was carefully dissected laterally off the carotid artery without actually grasping the nerve but rather the perineural tissues, and the nerve was thereby
protected from harm's way. I then continued my dissection up the common carotid artery to the bulb staying only on the anterior surface of the carotid artery. Then I carried the dissection up to the internal carotid artery and then to the distal
internal carotid artery. I identified where it was soft and carefully circumferentially dissected the internal carotid artery with minimal mobilization and passed a vessel loop around it. Note the hypoglossal nerve was visualized and was clearly
preserved from harm's way. The patient was given an appropriate dose of heparin 6000 units. Next I dissected the anterior surface of the external carotid artery and superior thyroid branches. These were then carefully circumferentially dissected
with minimal mobilization and vessel loops passed around these which were double looped but not yet tightened. After 3 minutes of heparin circulation time and confirmation of optimization of the blood pressure with my anesthesiology colleagues, I
clamped the distal internal carotid artery where it was soft. There was no immediate EEG or SSEP changes. After 1 minute of test clamp time there was no changes noted. Therefore at this point, the vessel loops on the external carotid artery and
superior thyroid branches were tightened and the common carotid artery was clamped where it was soft proximally. An arteriotomy was made on the common carotid artery with an 11 blade and extended using a Chang scissor. I tried to extend the
arteriotomy onto the internal carotid artery, but the plaque was so bulky I could not find a lumen to extended. And in fact staying outside the lumen was even challenging with the Chang scissor. Therefore, I used an 11 blade to make an arteriotomy
where it was soft on the proximal internal carotid artery just distal to the bulk of the plaque. I then tried using a Chang to stay exterior to the plaque and connect the 2 arteriotomy sites. Next, I was able to use a [place] was to then
endarterectomize the plaque. As noted this was a near occlusive bulky hard and calcified plaque, with posteriorly slight bluish component indicating potential focal area of small plaque hemorrhage. An endarterectomy plane was created, and the
plaque was then endarterectomized. Distally I feathered the plaque out to a nice clean endpoint in the distal internal carotid artery. Next I endarterectomized the intima back to normal intima in the common carotid artery, and the intima was cut
flush there. I then grasped the plaque and everted plaque out of the origin of the external carotid artery. The plaque was then sent off for specimen. The origin of the external carotid artery was carefully visualized and any fine debris were
removed with fine forceps. Proximal and distal endpoints were then carefully inspected. Any fine debris was removed from both endpoints utilizing fine forceps, and the intima was noted to be nicely adherent proximally and distally. Next any fine
debris were removed throughout the endarterectomy bed with fine forceps. I then flushed heparinized saline. I was very satisfied. Then, I used a bovine pericardial patch to sew a patch angioplasty with a running 6-0 Prolene suture. Prior to
completing and tying down my suture line, I backbled sequentially each branch and reclamped each branch prior to unclamping the next branch. I then irrigated with heparinized saline. Then I completed and tied down my suture line. We then restored
flow in the common carotid and external carotid arteries. Finally, we released flow in the internal carotid artery. There was excellent pulsatile flow in all 3 vessels. There was an excellent Doppler signal in the internal carotid artery distal
to the patch with a good normal low resistance Doppler signal. There was a good Doppler signal in the external carotid artery as well. A couple 6-0 Prolene [id number] sutures were placed along any bleeding points along the suture line.
Protamine was given to reverse the heparin. Hemostasis was completely achieved. We then irrigated and confirmed full hemostasis. We then closed in layers with 2-0 Vicryl layer to reapproximate the sternocleidomastoid muscle, followed by 3-0
Vicryl platysma muscle running layer, followed by 4-0 Monocryl subcuticular stitch. Dermabond was applied. The patient tolerated procedure well. He awoke moving all extremities to command with tongue in the midline. All sponge, needle,
instrument counts were correct at the end of the case. The patient was transported recovery room in stable condition. Of note, no EEG/SSEP changes were noted throughout the entirety of the case.
--- NOTE | 2024-08-29 09:46 | CON.INTV ---
Consultation
Consultation Request
Date/Time Consultation Requested: 08/29/2024 - 916
Date/Time Consultation Performed: 08/29/2024939
Requesting Provider: CHRISTINA Spears
Performing Provider: Dr. Smith
Reason for Consultation: s/p L-CEA
Medical History
-
Chief Complaint: Altered mental status + passed out
History of Present Illness:
73-year-old male active tobacco smoker with a past medical history of hypertension, hyperlipidemia, seasonal allergies, anxiety, alcohol abuse, marijuana abuse, diabetes mellitus type 2, and right-sided carotid artery stenosis s/p CEA who presented
with confusion, shallow breathing and passed out. Patient has smoked marijuana at his son's house and then started to lean forward and patient's son felt him go limp and then he was confused and palmer appearing and breathing shallowly. There was no
reported seizure activity. He was confused in the ER, ripping off monitor leads asking 'why am I here.' Patient had a facial droop on the right and initially was here for a stroke workup. Initial CT head showed no acute intracranial abnormality,
CTA head/neck showed heavily calcified plaque within the left carotid bulb with >90% stenosis. Vascular surgery consulted. MRI brain on 08/26/2024 showed no acute infarct. Given his significant left carotid artery stenosis, patient was offered
surgical revascularization which the son agreed to. Today patient underwent a left carotid endarterectomy with bovine pericardial patch angioplasty. EBL was 10 cc and he was transferred to the ICU postoperatively for further care. Box Office Agent
services consulted for additional management/recommendations.
When I saw the patient, he was resting in bed in no acute distress with his son, Rick, at bedside. Patient currently in no acute distress. Heart rate 82, BP via A-line 132/62, BP via NIBP: 132/83, and saturating 94% on room air. Patient
currently denies shortness of breath, chest pain, AMANDA, nausea, fevers chills. He mainly wants to have a drink of soda.
PMHx: Hypertension, hyperlipidemia, seasonal allergies, anxiety, history of alcohol abuse, marijuana abuse, diabetes mellitus type 2, right-sided carotid artery stenosis s/p CEA
PSHx: Hernia repair, carpal tunnel repair, right CEA
Past Medical History
Past Medical History: Other (Above as per HPI)
Past Surgical History: Other (Above as per HPI)
Social History
Tobacco: Smoker (Cigar smoker with prior [id number] history)
Alcohol: Occasional (Drink 32 ounce of Coors light 4 days a week, previously drank 6 pack every 1-2 days >1-year ago)
Drug: Marijuana
Personal: Other ( from )
Living: With Family (Lives with son, Rick)
Employment: Not Employed
Family History
Family History: Reviewed & Not Pertinent
Allergies / Home Medications
Allergies
Allergy/AdvReac Type Severity Reaction Status Date / Time
No Known Allergies Allergy Verified 08/25/24 20:36
Home Medications
�Medication �Instructions �Recorded �Confirmed �Last Taken �Type
Aspir-81 10 mg PO DAILY 08/25/24 08/25/24 Unknown History
Flonase Allergy Relief 1 spray inhalation DIRECTED PRN 08/25/24 08/25/24 Unknown History
Rhinorrhea
atorvastatin 40 mg tablet (Lipitor) 40 mg PO DAILY 08/25/24 08/25/24 Unknown History
citalopram 40 mg PO DAILY 08/25/24 08/25/24 Unknown History
clonazepam 0.5 mg PO DAILY PRN Anxiety 08/25/24 08/25/24 Unknown History
diltiazem HCl 0 mg PO DAILY 08/25/24 08/25/24 Unknown History
ezetimibe 10 mg PO DAILY 08/25/24 08/25/24 Unknown History
fexofenadine 180 mg PO DAILY PRN Seasonal 08/25/24 08/25/24 Unknown History
allergies
lisinopril 10 mg PO DAILY 08/25/24 08/25/24 Unknown History
metformin 500 mg PO BID 08/25/24 08/25/24 Unknown History
Review of Systems
-
History Source: Patient
All other systems: Negative unless noted
Vitals / Labs / Diagnostic Testing
Vital Signs
Temp Pulse Resp BP Pulse Ox
99.3 F 80 18 152/88 98
08/29/24 19:34 08/29/24 17:00 08/29/24 17:00 08/29/24 13:23 08/29/24 17:14
Lab Data
08/29/24 10:02
08/29/24 10:02
Laboratory Results
08/29/24
10:02
PT 13.7
INR 1.00
APTT 32.0
Microbiology
08/26/24 03:34 Nose MRSA Screen - Final
No Methicillin Resistant Staphylococcus aureus isolated.
Diagnostic Testing:
Physical Exam
-
HEENT: Anicteric and Other (Left anterior neck incision without exsanguination)
Cardiovascular: S1/S2 and Peripheral Edema (negative)
Respiratory: Wheeze (negative), Rales (negative), Rhonchi (negative) and Non-Labored Respirations
GI: Soft, Non Distended, Non Tender and Normal Bowel Sounds
Neurology: Awake, Alert and Tremors (negative)
Skin: Warm and Dry
General: Respiratory Distress (negative), Comfortable, Chills (negative) and Sweats (negative)
Assessment
-
Assessment: 73-year-old male active tobacco smoker with a past medical history of hypertension, hyperlipidemia, seasonal allergies, anxiety, alcohol abuse, marijuana abuse, diabetes mellitus type 2, and right-sided carotid artery stenosis s/p CEA
who presented with confusion, shallow breathing and passed out. Patient has smoked marijuana at his son's house and then started to lean forward and patient's son felt him go limp and then he was confused and palmer appearing and breathing shallowly.
There was no reported seizure activity. He was confused in the ER, ripping off monitor leads asking 'why am I here.' Patient had a facial droop on the right and initially was here for a stroke workup. Initial CT head showed no acute intracranial
abnormality, CTA head/neck showed heavily calcified plaque within the left carotid bulb with >90% stenosis. Vascular surgery consulted. MRI brain on 08/26/2024 showed no acute infarct. Given his significant left carotid artery stenosis, patient
was offered surgical revascularization, which the son agreed to. On 08/29/2024, the patient underwent a left carotid endarterectomy with bovine pericardial patch angioplasty. EBL was 10 cc and he was transferred to the ICU postoperatively for
further care. Box Office Agent services consulted for additional management/recommendations.
Chronic conditions BOOM TENDER: Hypertension, hyperlipidemia, seasonal allergies, anxiety, history of alcohol abuse, marijuana abuse, diabetes mellitus type 2, right-sided carotid artery stenosis s/p CEA
Impression:
#Symptomatic critical left carotid artery stenosis s/p left carotid endarterectomy with bovine pericardial patch angioplasty and intraoperative EEG/SSEP monitoring (POD #0)
#Alcohol use
#Marijuana abuse
#Hypertension
#Hyperlipidemia
#Right carotid artery stenosis s/p CEA
#DM type II
#Tobacco use disorder (cigar smoker with prior [id number] history)
Plan:
Postoperative surgical intensive care unit monitoring
Supplemental oxygen as needed to maintain SpO2 >90-94%
prn nebulized bronchodilators
Incentive spirometry encouraged 10x per hour for at least 4 hrs a day
Aspiration precautions
Pain control
Neuro and vascular checks per protocol
Maintain MAP>65
Replete electrolytes with K>4, Mg>2
Maintain euglycemia with goal BG 140-180
Vascular surgery following-correspondence and operative notes reviewed
Transfuse blood products as needed to keep Hb>7g/dL, and plt>50k (given post-operative status)
Due to the patient's history of alcohol use, continue with thiamine + MSAS with prn ativan
DVT prophylaxis
Early nutrition
Early mobilization
Code status: Full code
Critical care statement: A total of 42 minutes of critical care time was provided for this patient today. This includes management of unstable vital signs, evaluation of the patient at bedside, reviewing the patient's pertinent medical records
including radiographs, microbiology, laboratory evaluations, and discussion with primary team, consultants, pharmacy, nutrition, physical therapy, case management, charge nurse, critical care nursing, and respiratory therapy.
[2024-08-29 09:57] LABS: Glucose - Point of Care 127 mg/dl (70-99)
[2024-08-29 10:13] LABS: Hematocrit 38.1 % (39.0-52.0); Hemoglobin 13.5 g/dL (13.0-18.0); Mean Corp Hgb Conc. 35.4 g/dL (33.0-37.0); Mean Platelet Volume 8.3 fL (7.4-10.4); Platelet Count 162 10^3/uL (130-400); Red Blood Cell Count 3.97 10^6/uL (4.70-6.10); Red Cell Dist. Width 12.2 % (11.5-14.5); White Blood Cell Count 9.6 10^3/uL (4.8-10.8)
[2024-08-29 10:21] LABS: PT 13.7 Sec (11.4-14.6)
[2024-08-29] MEDS: NSS 1000 IV (10:31)
[2024-08-29 10:36] LABS: Blood Urea Nitrogen 13 mg/dl (9-20); Calcium 8.4 mg/dl (8.4-10.2); Carbon Dioxide 25 mmol/L (22-30); Chloride 109 mmol/L (98-107); Estimated Creatinine Clearance 99 ml/min; Glucose 142 mg/dl (70-99); Potassium 4.4 mmol/L (3.5-5.1); Sodium 139 mmol/L (135-145); eGFR > 60.00
[2024-08-29] MEDS: NOVOLOG FLEXPEN-LOW RESISTANCE SC ×2 (10:42→17:23)
--- NOTE | 2024-08-29 11:56 | SUR.PHASEI ---
repetative conversation., cooperative but has no idea when he came to hospital or why. repeats same questions over and over. no other neuro deficit noted. vsslisa intact to ICCU when nurse available with report.
--- NOTE | 2024-08-29 12:35 | PTCARENOTE ---
Rec. pt. from PACU post op CEA.
Alert, confused conversation but able to be oriented at times. Can answer name, , however situation is confusing to him.
Moderate pain at Surg site. PRN given. see mar.
RA 98%. Normotensive via art line within a 10 point correlation with NIBP. Normothermic.
AM meds not given from 0800, clinical pharmacy made aware.
[2024-08-29] MEDS: DILAUDID 0.25 MG IV ×2 (13:22→18:18)
[2024-08-29] MEDS: ZESTRIL 10 MG PO (13:23)
[2024-08-29] MEDS: VITAMIN B1 100 MG PO ×2 (13:24→20:12)
[2024-08-29] MEDS: PLAVIX 75 MG PO (13:24)
[2024-08-29] MEDS: LIPITOR 40 MG PO (13:24)
[2024-08-29] MEDS: CELEXA 40 MG PO (13:25)
[2024-08-29] MEDS: FOLVITE 1 MG PO (13:25)
[2024-08-29] MEDS: ASPIR LOW (ENTERIC COATED) 81 MG PO (13:25)
--- NOTE | 2024-08-29 16:24 | W.PN.HOSP.TC ---
Today's Communication/Plan
-
Physical therapy reconsult, possible discharge tomorrow
Assessment / Plan
Assessment / Plan
Impression:
73-year-old male was presenting from home with confusion, R facial droop.��Also suspected cognitive impairment underlying.��CT angiogram with left carotid artery stenosis.��MRI negative for stroke
neurology recommending vascular surgery evaluation for symptomatic left carotid artery stenosis.
Vascular surgery, status post left carotid endarterectomy on 08/29
Assessment/plan:
Right facial droop concern for CVA due to CRITICAL STENOSIS >90% LEFT CAROTID BULB / PROXIMAL LEFT ICA
Aspirin 324 mg given in ER
-Continue aspirin 81 mg daily, Lipitor 40 mg
- Appreciate neurology and vascular surgery input
- LDL 51, HgbA1c 6.4
- MRI brain negative for acute infarct
CT head and neck: Moderate irregularity and MOD NARROWING of a LEFT MCA anterior M2 branch. No focal aneurysm. Nasal septal perforation scattered ethmoid maxillary sinus mucosal thickening
Angiogram neck: Critical stenosis> 90% of the LEFT carotid bulb and Proximal Left ICA
Vascular surgery recommending plan for possible CEA 08/29.
08/29
status post left carotid endarterectomy
Acute toxic metabolic encephalopathy likely secondary to marijuana use, alcohol use versus underlying cognitive impairment
- Per son smoked a Marijuana cigarette then became confused and fell
- UDS noted for marijuana and benzos
-Monitor mentation and reorient as necessary. Fall precautions. PT eval.
Leukocytosis likely reactive
Afebrile. No cough. No urinary symptoms. Monitor for now.
improved.
Alcohol abuse
Patient reports 32 ounce beer at least 4 times a week
-Check alcohol level due to current confusion
MSAs screen with protocol
Essential hypertension
- Continue lisinopril 10 mg daily with hold parameters
Hyperlipidemia
LDL 51
Continue atorvastatin 40 mg daily
History of diabetes mellitus
Insulin sliding scale
Diabetic diet
Hemoglobin A1c 6.4
Accu-Cheks with SSI, check HgbA1c
Hold metformin
Active smoker
- Cessation advised
Prior cigarette smoker Qasim 1 pack a day x 45 years
CODE STATUS: Full code
DVT prophylaxis: Lovenox
Diet: Soft and bite-size diet.
Total time spent on today's encounter was 65 minutes which included time spent in counseling the patient/family regarding diagnosis and treatment plan as listed above, goals of care, and symptom management. Case was discussed with nursing staff,
specialists, and care coordinators/case management. All labs and imaging personally reviewed by me. Remainder the time spent in detailed review of previous records, lab data, imaging, and other medical provider documentation.
Anticipated Discharge: Within 24 hours
Subjective/Interval History
-
Date of Service: August 29, 2024
Patient seen and examined at bedside, son at bedside.
Status post left carotid CEA yesterday.
Denies any chest pain or shortness of breath, no abdominal pain, no nausea, no vomiting, no diarrhea or constipation.
Objective Data
-
Labs:
Laboratory Results
08/29/24 08/29/24
06:55 10:02
WBC 6.9 9.6
Hgb 15.4 13.5
Hct 44.7 38.1 L
Plt Count 199 162
PT 13.7
INR 1.00
APTT 32.0
Sodium 140 139
Potassium 4.3 4.4
Chloride 104 109 H
Carbon Dioxide 28 25
BUN 14 13
Creatinine 0.6 L 0.6 L
Glucose 102 H 142 H
Calcium 9.5 8.4
Vital Signs:
Vital Signs
Temp Pulse Resp BP Pulse Ox
98 F 80 16 138/68 96
08/29/24 11:45 08/29/24 11:45 08/29/24 11:45 08/29/24 11:45 08/29/24 11:45
I&O
08/28/24 08/29/24 08/30/24
06:59 06:59 06:59
Intake Total 1560 / 1560 1120 / 1120 220 / 220
Output Total 1075 / 1075 450 / 450 0 / 0
Balance 485 / 485 670 / 670 220 / 220
Physical Exam
-
General: Well Developed, Well Nourished, No Apparent Distress and Comfortable
HEENT: Normocephalic, Atraumatic, Moist Mucous Membranes, No Ptosis, PERRLA, Nose Appears Normal and Other (Left neck incision clean with no sign of infection or bleeding.)
Respiratory: Clear to Auscultation and Non Labored Respirations
Cardiac: Regular Rhythm and S1/S2
Breast: Deferred by me
GI: Soft, Nontender, Nondistended and Normal Bowel Sounds
Genito-urinary: No Costovertebral Tender
Musculoskeletal: No Clubbing, No Cyanosis and No Edema
Skin: Warm
Neuro: Awake, Alert, Oriented (Not fully oriented) and No Motor Deficits
Psych: Calm
Data Reviewed
-
Diagnostic Radiology: Image personally visualized and interpreted and Report Reviewed by me
CT Scan: Image personally visualized and interpreted and Report Reviewed by me
Ultrasound: Image personally visualized and interpreted and Report Reviewed by me
MRI: Image personally visualized and interpreted and Report Reviewed by me
Medical Tests (Nuc Med, Echo etc): Image personally visualized and interpreted and Report Reviewed by me
Labs: Labs Reviewed by me
Old Records: Reviewed
--- NOTE | 2024-08-29 16:45 | DOWNTIME ---
There was a [employer] Client Tie Mill Operator Downtime on 08/29/2024 from 1230 to 08/29/2024 at 1550. Downtime documentation of patient's care, including medication administrations, has been reconciled in the electronic record per guidelines. Refer to the
patient's paper chart under the miscellaneous tab to see printed paper medication records and downtime forms.
--- NOTE | 2024-08-29 17:08 | PTCARENOTE ---
Downtime over.
0800 medications not given prior to procedure. Reviewed with [facility] NIRAJ/Clinical pharmacy ok to give medications now. Medications given at 1300, not scanned due to downtime, see downtime flowsheets on chart.
Slight hematoma noted on pt. incision after CEA, [facility] NIRAJ notified assessed bedside, ok with incision cont. ice and monitoring.
[2024-08-29 17:22] LABS: Glucose - Point of Care 160 mg/dl (70-99)
[2024-08-29] MEDS: DESENEX/MITRAZOL/ZEASORB TOPICAL (17:25)
[2024-08-29] MEDS: LOVENOX 40 MG SC (17:26)
--- NOTE | 2024-08-29 18:07 | PTCARENOTE ---
Insulin pen not available after pt. transport, clinical pharmacy made aware to rec. new pen.
[2024-08-29] MEDS: NOVOLOG FLEXPEN-LOW RESISTANCE 2 UNITS SC (20:23)
[2024-08-29] MEDS: DESENEX/MITRAZOL/ZEASORB 1 APPLIC TOPICAL (21:12)
--- NOTE | 2024-08-29 21:32 | PTCARENOTE ---
Received patient very confused, only oriented to self. Constantly reoriented to place, time, and situation. Q1 hour neurochecks. Normal sinus 70s, BP stable, normothermic. Palpable radial and pedal pulses b/l. 97% on room air, lung sounds clear
throughout. Abdomen soft, round, positive bowel sounds. Patient able to use urinal to void, occasionally has episodes of incontinence. Left neck CEA surgical wound has a small hematoma, COTTON BREEDER aware. Dermabond intact. Left radial arterial line zeroed,
flushed, and leveled. Patient removed right PIV, left PIV patent, WNL. IVF ongoing. Bed alarm on, call antonio within reach.
[2024-08-29 21:45] LABS: Glucose - Point of Care 158 mg/dl (70-99)
[2024-08-30] VITALS (24 sets, daily range): BP systolic 94–145; BP diastolic 49–93; PULSE 94; BMI 20.3
--- NOTE | 2024-08-30 00:23 | PTCARENOTE ---
Patient removed arterial line. CHG bath done, sheets changed, pressure held, and pressure dressing applied. DENTAL MANAGER and vascular made aware.
[2024-08-30] MEDS: NSS 1000 IV (01:05)
--- NOTE | 2024-08-30 04:00 | PTCARENOTE ---
Patient assessment unchanged from previous. Call antonio within reach, hourly rounding and patient safety checks ongoing.
[2024-08-30 05:36] LABS: Hematocrit 36.5 % (39.0-52.0); Hemoglobin 13.1 g/dL (13.0-18.0); Mean Corp Hgb Conc. 35.9 g/dL (33.0-37.0); Mean Corpuscular Hgb 33.9 pg (27.0-31.0); Mean Corpuscular Volume 94.3 fL (80.0-94.0); Mean Platelet Volume 8.5 fL (7.4-10.4); Platelet Count 171 10^3/uL (130-400); Red Blood Cell Count 3.87 10^6/uL (4.70-6.10); Red Cell Dist. Width 12.1 % (11.5-14.5); White Blood Cell Count 11.5 10^3/uL (4.8-10.8)
[2024-08-30 05:48] LABS: PT 13.7 Sec (11.4-14.6)
[2024-08-30 06:14] LABS: Blood Urea Nitrogen 7 mg/dl (9-20); Calcium 8.8 mg/dl (8.4-10.2); Carbon Dioxide 26 mmol/L (22-30); Chloride 107 mmol/L (98-107); Estimated Creatinine Clearance 106 ml/min; Glucose 109 mg/dl (70-99); Potassium 4.1 mmol/L (3.5-5.1); Sodium 139 mmol/L (135-145); eGFR > 60.00
--- NOTE | 2024-08-30 07:29 | W.PN.VS ---
Addendum entered and electronically signed by Fernandez Morin MD 08/30/24 07:44:
Seen and examined with JAZMINE Lira. Agree with findings as noted below. No significant complaints or events. Left neck incision is clean dry and intact. No significant hematoma. Neurologically no focal deficits. Moves all extremities well. Tongue
midline. Plan/as discussed and noted below. Likely okay for discharge from a vascular perspective whenever medically stable.
Original Note:
Today's Communication / Plan
-
Patient seen and examined at bedside with Dr. Fernandez Morin M.D., below plan reviewed with attending.
Assessment/Plan
-
Assessment: 73-year-old male POD #1 left carotid endarterectomy
Plan:
Activity liberated to out of bed with progression ambulation as tolerated
Continue dual antiplatelet therapy of 75 mg p.o. Plavix daily with aspirin 81 mg p.o. daily per TIA/stroke protocol
Continue statin
Encourage incentive spirometry
If patient continues to progress well from a vascular surgical perspective could be considered for discharge this afternoon or at least downgraded to telemetry, will defer to medicine team for final determination
Subjective Data
-
Date of Service: August 30, 2024
Patient seen and examined at bedside, offers no complaints. Reports tolerating p.o. diet. Patient is intermittently confused and per nursing did dislodge arterial line overnight.
Objective Data
-
Vital Signs
Temp Pulse Resp BP Pulse Ox
98.6 F 73 17 133/83 97
08/30/24 04:00 08/30/24 06:00 08/30/24 06:00 08/30/24 06:00 08/29/24 21:29
Intake and Output
08/29/24 08/30/24 08/31/24
06:59 06:59 06:59
Intake Total 1120 / 1120 2380 / 2380
Output Total 450 / 450 3300 / 3300
Balance 670 / 670 -920 / -920
Intake:
Oral fluids 1120 / 1120 420 / 420
IV fluids (Total) 1960 / 1959
Nss 1,000 ml @ 80 mls/hr IV . 880 / 880
[id number] LAURA Rx#:[id number]
nss 1080 / 1080
IV piggybacks 0 / 0
Output:
Urine, Voided 450 / 450 3300 / 3300
Other:
Number of approximated SMALL 1
amounts of urine
Number of approximated MODERATE 2
amounts of urine
How many times incontinent 1
SATURATED amount urine
Lab Results
08/30/24 05:27
08/30/24 05:27
Calcium 8.8 mg/dl (8.4-10.2) 08/30/24 05:27
Phosphorus 4.9 mg/dl (2.5-4.5) H 08/26/24 04:32
Magnesium 2.0 mg/dl (1.6-2.3) 08/26/24 04:32
Total Bilirubin 0.3 mg/dl (0.2-1.3) 08/25/24 21:19
AST 31 U/L (17-59) 08/25/24 21:19
ALT 49 U/L (0-50) 08/25/24 21:19
Alkaline Phosphatase 75 U/L (38-126) 08/25/24 21:19
Total Protein 6.1 g/dl (6.3-8.2) L 08/25/24 21:19
Albumin 3.9 g/dl (3.5-5.0) 08/25/24 21:19
Physical Exam
-
No apparent distress, resting bed comfortably
Left neck surgical incision clean, dry, and intact, slight fullness at upper part of incision pole but no evidence of hematoma, all surrounding areas soft, no ecchymosis, tongue midline, face symmetrical
No tachycardia
No dyspnea on room air
Moves bilateral upper extremities and lower extremities to command and spontaneously with equal strength, left radial arterial line removal site CDI with no evidence of hematoma
[2024-08-30 07:42] LABS: Glucose - Point of Care 95 mg/dl (70-99)
[2024-08-30] MEDS: NOVOLOG FLEXPEN-LOW RESISTANCE SC ×2 (07:45→16:45)
[2024-08-30 08:00] LABS: Glucose - Point of Care 208 mg/dl (70-99)
--- NOTE | 2024-08-30 08:12 | PTOTSP ---
New HOLISTIC PULSER orders required after general anesthesia. Patient POD #1 left carotid endarterectomy. Will f/u as able/appropriate when new orders received.
--- NOTE | 2024-08-30 08:15 | W.PN.INTV ---
Today's Communication / Plan
Recommendations
Up OOB as tolerated
Encourage incentive spirometer
Pain control
DAPT with ASA + Plavix
Recommendations by neurology + vascular surgery appreciated
Patient is awaiting facility placement given recommendations from occupational therapy.
Patient is stable for downgrade out of ICU to telemetry. No additional recommendations at this time. Mortgage Loan Officer Originator/Pulmonary service will now sign off. Please reconsult if there are any additional questions/concerns, or if patient's respiratory
status deteriorates.
Assessment
-
Assessment: 73-year-old male active tobacco smoker with a past medical history of hypertension, hyperlipidemia, seasonal allergies, anxiety, alcohol abuse, marijuana abuse, diabetes mellitus type 2, and right-sided carotid artery stenosis s/p CEA
who presented with confusion, shallow breathing and passed out. Patient has smoked marijuana at his son's house and then started to lean forward and patient's son felt him go limp and then he was confused and palmer appearing and breathing shallowly.
There was no reported seizure activity. He was confused in the ER, ripping off monitor leads asking 'why am I here.' Patient had a facial droop on the right and initially was here for a stroke workup. Initial CT head showed no acute intracranial
abnormality, CTA head/neck showed heavily calcified plaque within the left carotid bulb with >90% stenosis. Vascular surgery consulted. MRI brain on 08/26/2024 showed no acute infarct. Given his significant left carotid artery stenosis, patient
was offered surgical revascularization, which the son agreed to. On 08/29/2024, the patient underwent a left carotid endarterectomy with bovine pericardial patch angioplasty. EBL was 10 cc and he was transferred to the ICU postoperatively for
further care. Mortgage Loan Officer Originator services consulted for additional management/recommendations.
Chronic conditions ERP PM: Hypertension, hyperlipidemia, seasonal allergies, anxiety, history of alcohol abuse, marijuana abuse, diabetes mellitus type 2, right-sided carotid artery stenosis s/p CEA
Impression:
#Symptomatic critical left carotid artery stenosis s/p left carotid endarterectomy with bovine pericardial patch angioplasty and intraoperative EEG/SSEP monitoring (POD #1)
#Alcohol use
#Marijuana abuse
#Hypertension
#Hyperlipidemia
#Right carotid artery stenosis s/p CEA
#DM type II
#Tobacco use disorder (cigar smoker with prior [id number] history)
Plan:
Postoperative surgical intensive care unit monitoring
Supplemental oxygen as needed to maintain SpO2 >90-94%
prn nebulized bronchodilators
Incentive spirometry encouraged 10x per hour for at least 4 hrs a day
Aspiration precautions
Pain control
Neuro and vascular checks per protocol
Maintain MAP>65
Replete electrolytes with K>4, Mg>2
Maintain euglycemia with goal BG 140-180
Vascular surgery following-correspondence and operative notes reviewed
Transfuse blood products as needed to keep Hb>7g/dL, and plt>50k (given post-operative status)
Continue DAPT with ASA and plavix, at the discretion of vascular surgery and neurology
Due to the patient's history of alcohol use, continue with thiamine + MSAS with prn ativan
DVT prophylaxis
Early nutrition
Early mobilization
PT: Recommended home health
OT: Recommending skilled rehab
Code status: Full code
Patient is stable for downgrade out of ICU to telemetry. Patient is awaiting a facility given recommendations from occupational therapy. No additional recommendations at this time. Mortgage Loan Officer Originator/Pulmonary service will now sign off. Thank you for
allowing us to be involved in the care of this patient. Please reconsult if there are any additional questions/concerns, or if patient's respiratory status deteriorates.
Total time spent today was 58 minutes for this encounter. Time includes reviewing laboratory test/imaging results, reviewing pertinent medical records, obtaining and reviewing medical history, performing an appropriate exam, ordering medications,
tests and procedures. Time also includes documentation of this encounter, coordinating patient care and communicating with other healthcare professionals. Total time does not include separately billed tests performed on this date of service.
Subjective Dataa
Subjective Data
Date of Service:
Date of Service: August 30, 2024
Chief Complaint: Mortgage Loan Officer Originator Follow Up
Subjective:
Patient seen today and currently sitting in a chair no acute distress. Heart rate 85, on room air with SpO2 96%. Patient likely being discharged home today. He denies chest pain, AMANDA, nausea, fevers or chills.
Review of Systems
General: Other (Negative unless mentioned above)
Objective Data
Data Reviewed
Vital Signs / I&O / Oxygen:
Vital Signs
Temp Pulse Resp BP Pulse Ox
98.4 F 78 17 137/80 96
08/30/24 08:13 08/30/24 09:00 08/30/24 09:00 08/30/24 09:00 08/30/24 09:00
Intake and Output
08/29/24 08/30/24 08/31/24
06:59 06:59 06:59
Intake Total 1120 / 1120 2380 / 2460 400 / 400
Output Total 450 / 450 3300 / 3300 250 / 250
Balance 670 / 670 -920 / -840 150 / 150
SaO2 96
Nasal Cannula flow liters per 2
minute
Physical Exam
General: Respiratory Distress, Comfortable, Chills (n) and Sweats (n)
HEENT: Normocephalic and Anicteric
Cardiovascular: S1-S2 and Peripheral Edema (n)
Respiratory: Clear, Wheeze (n), Crackles (n), Rhonchi (n) and Accessory Resp Muscle Use (n)
GI: Soft, Non Distended, Non Tender and Normal Bowel Sounds
Neurology: Awake, Alert and Tremors (n)
Skin: Warm, Dry, Jaundice (n) and Rash (n)
Labs/Micro/Reports
Lab Data
08/30/24 05:27
08/30/24 05:27
Laboratory Results
08/29/24 08/30/24
10:02 05:27
PT 13.7 13.7
INR 1.00 1.00
APTT 32.0 29.0
Microbiology
08/26/24 03:34 Nose MRSA Screen - Final
No Methicillin Resistant Staphylococcus aureus isolated.
[2024-08-30] MEDS: PLAVIX 75 MG PO (08:16)
[2024-08-30] MEDS: FOLVITE 1 MG PO (08:16)
[2024-08-30] MEDS: CELEXA 40 MG PO (08:16)
[2024-08-30] MEDS: ASPIR LOW (ENTERIC COATED) 81 MG PO (08:16)
[2024-08-30] MEDS: VITAMIN B1 100 MG PO ×2 (08:16→20:42)
[2024-08-30] MEDS: LIPITOR 40 MG PO (08:17)
[2024-08-30] MEDS: DESENEX/MITRAZOL/ZEASORB 1 APPLIC TOPICAL ×2 (08:17→20:42)
[2024-08-30] MEDS: ZESTRIL 10 MG PO (08:17)
--- NOTE | 2024-08-30 09:15 | PTCARENOTE ---
Rec'd care of patient at 0700. Patient alert. Oriented to self and that he is in a hospital. Confused and forgetful requiring frequent reorientation. Pupils equal and reactive. MAEx4; normal strength. Left neck incision approximated; closed with
surgical adhesive. Small ecchymosis. NSR on tele. Lung sounds diminished throughout. Pulse ox 96% on RA. Tolerating liquids. Diet advanced per protocol. No bm. Voiding via urinal. Occasionally incontinent. Vascular surgery team at bedside. Patient
cleared to get oob. IVFs capped. Assisted x1 to chair at 0830. Chair alarm on for safety.
--- NOTE | 2024-08-30 09:50 | PTCARENOTE ---
Patient ambulating throughout unit with PT/OT.
--- NOTE | 2024-08-30 10:57 | PTCARENOTE ---
Putting pulling at wires. Placed back on tele monitor. Patient agitated, stating his son 'stole' his care. Asking RN, 'what is the number for the police'. Patient redirected. Assisted back in bed per patient request. Bed alarm on and functioning.
[2024-08-30 12:12] LABS: Glucose - Point of Care 198 mg/dl (70-99)
[2024-08-30] MEDS: NOVOLOG FLEXPEN-LOW RESISTANCE 1 UNITS SC (12:26)
--- NOTE | 2024-08-30 12:53 | W.PN.HOSP.TC ---
Today's Communication/Plan
-
pending discharge to rehab
Assessment / Plan
Assessment / Plan
Impression:
73-year-old male was presenting from home with confusion, R facial droop.��Also suspected cognitive impairment underlying.��CT angiogram with left carotid artery stenosis.��MRI negative for stroke
neurology recommending vascular surgery evaluation for symptomatic left carotid artery stenosis.
Vascular surgery, status post left carotid endarterectomy on 08/29
Assessment/plan:
Right facial droop concern for CVA due to CRITICAL STENOSIS >90% LEFT CAROTID BULB / PROXIMAL LEFT ICA
Aspirin 324 mg given in ER
-Continue aspirin 81 mg daily, Lipitor 40 mg
- Appreciate neurology and vascular surgery input
- LDL 51, HgbA1c 6.4
- MRI brain negative for acute infarct
CT head and neck: Moderate irregularity and MOD NARROWING of a LEFT MCA anterior M2 branch. No focal aneurysm. Nasal septal perforation scattered ethmoid maxillary sinus mucosal thickening
Angiogram neck: Critical stenosis> 90% of the LEFT carotid bulb and Proximal Left ICA
Vascular surgery recommending plan for possible CEA 08/29.
08/29
status post left carotid endarterectomy
Acute toxic metabolic encephalopathy likely secondary to marijuana use, alcohol use versus underlying cognitive impairment
- Per son smoked a Marijuana cigarette then became confused and fell
- UDS noted for marijuana and benzos
-Monitor mentation and reorient as necessary. Fall precautions. PT eval.
Leukocytosis likely reactive
Afebrile. No cough. No urinary symptoms. Monitor for now.
improved.
Alcohol abuse
Patient reports 32 ounce beer at least 4 times a week
-Check alcohol level due to current confusion
MSAs screen with protocol
Essential hypertension
- Continue lisinopril 10 mg daily with hold parameters
Hyperlipidemia
LDL 51
Continue atorvastatin 40 mg daily
History of diabetes mellitus
Insulin sliding scale
Diabetic diet
Hemoglobin A1c 6.4
Accu-Cheks with SSI, check HgbA1c
Hold metformin
Active smoker
- Cessation advised
Prior cigarette smoker Qasim 1 pack a day x 45 years
CODE STATUS: Full code
DVT prophylaxis: Lovenox
Diet: Soft and bite-size diet.
Total time spent on today's encounter was 65 minutes which included time spent in counseling the patient/family regarding diagnosis and treatment plan as listed above, goals of care, and symptom management. Case was discussed with nursing staff,
specialists, and care coordinators/case management. All labs and imaging personally reviewed by me. Remainder the time spent in detailed review of previous records, lab data, imaging, and other medical provider documentation.
Anticipated Discharge: Today
Subjective/Interval History
-
Date of Service: August 30, 2024
Patient was sitting in the chair, denies chest pain or shortness of breath, pending discharge to rehab
Objective Data
-
Labs:
Laboratory Results
08/30/24
05:27
WBC 11.5 H
Hgb 13.1
Hct 36.5 L
Plt Count 171
PT 13.7
INR 1.00
APTT 29.0
Sodium 139
Potassium 4.1
Chloride 107
Carbon Dioxide 26
BUN 7 L
Creatinine 0.5 L
Glucose 109 H
Calcium 8.8
Vital Signs:
Vital Signs
Temp Pulse Resp BP Pulse Ox
97.8 F 75 18 94/49 96
08/30/24 11:35 08/30/24 12:00 08/30/24 12:00 08/30/24 12:00 08/30/24 09:00
I&O
08/29/24 08/30/24 08/31/24
06:59 06:59 06:59
Intake Total 1120 / 1120 2380 / 2460 400 / 400
Output Total 450 / 450 3300 / 3300 250 / 250
Balance 670 / 670 -920 / -840 150 / 150
Physical Exam
-
General: Well Developed, Well Nourished, No Apparent Distress and Comfortable
HEENT: Normocephalic, Atraumatic, Moist Mucous Membranes, No Ptosis, PERRLA, Nose Appears Normal and Other (Left neck incision clean with no sign of infection or bleeding.)
Respiratory: Clear to Auscultation and Non Labored Respirations
Cardiac: Regular Rhythm and S1/S2
Breast: Deferred by me
GI: Soft, Nontender, Nondistended and Normal Bowel Sounds
Genito-urinary: No Costovertebral Tender
Musculoskeletal: No Clubbing, No Cyanosis and No Edema
Skin: Warm
Neuro: Awake, Alert, Oriented (Not fully oriented) and No Motor Deficits
Psych: Calm
Data Reviewed
-
Diagnostic Radiology: Image personally visualized and interpreted and Report Reviewed by me
CT Scan: Image personally visualized and interpreted and Report Reviewed by me
Ultrasound: Image personally visualized and interpreted and Report Reviewed by me
MRI: Image personally visualized and interpreted and Report Reviewed by me
Medical Tests (Nuc Med, Echo etc): Image personally visualized and interpreted and Report Reviewed by me
Labs: Labs Reviewed by me
Old Records: Reviewed
--- NOTE | 2024-08-30 14:09 | PTCARENOTE ---
Patient resting comfortably. Neuro checks unchanged. VSS. Encouraged patient to order lunch; patient declined.
--- NOTE | 2024-08-30 14:21 | CM ---
Previous CM supplied [employer] list to patient. Upon questioning, patient said he did not choose a facility. He gave permission for CM to call and/or send blanket referrals. This CM called and left a message for with details. Will
send blanket referrals. MD anticipating discharge and will need insurance auth
--- NOTE | 2024-08-30 15:44 | PTCARENOTE ---
Patient downgraded to tele level. Discharge orders in place. Awaiting placement.
[2024-08-30 16:42] LABS: Glucose - Point of Care 121 mg/dl (70-99)
[2024-08-30] MEDS: LOVENOX 40 MG SC (17:47)
--- NOTE | 2024-08-30 19:30 | PTCARENOTE ---
Patient received OOB walking in room with photocopying equipment repairer removed. He is confused, trying to go home, says he needs the police and that his son stole his car. He says he is not a patient here. Assisted back to bed. Patient then proceeds to use his
cell phone to call 911 while I was with my other patient. Advised teletypesetter operator that the patient is safe, he does not need assistance and that he is confused. Attempts to reorient the patient unsuccessful. Patient slowly reoriented, remembers why he
is in the hospital, apologetic for his confusion. See dairy tester charted on worklist flowsheet. SR with BBB. BBS clear. No edema. Left neck incision with dermabond CDI. Approx. golf ball sized hematoma palpable left posterior incision. Patient
denies pain. Bed in low and locked position, bed alarm on, call anotnio within reach.
[2024-08-30 23:10] LABS: Glucose - Point of Care 132 mg/dl (70-99)
[2024-08-31] VITALS (9 sets, daily range): BP systolic 92–183; BP diastolic 61–102; BMI 20.3
[2024-08-31 06:03] LABS: Hemoglobin 12.7 g/dL (13.0-18.0); Mean Corp Hgb Conc. 35.3 g/dL (33.0-37.0); Mean Corpuscular Hgb 33.8 pg (27.0-31.0); Mean Corpuscular Volume 95.7 fL (80.0-94.0); Mean Platelet Volume 8.5 fL (7.4-10.4); Platelet Count 179 10^3/uL (130-400); Red Blood Cell Count 3.76 10^6/uL (4.70-6.10); Red Cell Dist. Width 12.2 % (11.5-14.5); White Blood Cell Count 8.6 10^3/uL (4.8-10.8)
[2024-08-31 06:29] LABS: Blood Urea Nitrogen 9 mg/dl (9-20); Calcium 8.8 mg/dl (8.4-10.2); Carbon Dioxide 25 mmol/L (22-30); Chloride 106 mmol/L (98-107); Estimated Creatinine Clearance 106 ml/min; Glucose 114 mg/dl (70-99); Phosphorus 3.8 mg/dl (2.5-4.5); Sodium 137 mmol/L (135-145); eGFR > 60.00
--- NOTE | 2024-08-31 07:01 | PTCARENOTE ---
Report given verbally to oncoming aisha, Marlon TAYLOR. Questions answered.
[2024-08-31 08:02] LABS: Glucose - Point of Care 133 mg/dl (70-99)
[2024-08-31] MEDS: NOVOLOG FLEXPEN-LOW RESISTANCE SC ×3 (08:21→17:51)
[2024-08-31] MEDS: ASPIR LOW (ENTERIC COATED) 81 MG PO (09:26)
[2024-08-31] MEDS: VITAMIN B1 100 MG PO ×2 (09:26→21:06)
[2024-08-31] MEDS: LIPITOR 40 MG PO (09:26)
[2024-08-31] MEDS: ZESTRIL PO (09:26)
[2024-08-31] MEDS: PLAVIX 75 MG PO (09:26)
[2024-08-31] MEDS: FOLVITE 1 MG PO (09:26)
[2024-08-31] MEDS: CELEXA 40 MG PO (09:27)
[2024-08-31] MEDS: DESENEX/MITRAZOL/ZEASORB 1 APPLIC TOPICAL ×2 (09:27→21:07)
--- NOTE | 2024-08-31 10:55 | PTCARENOTE ---
Bedside report given to floor RN, handoff completed.
--- NOTE | 2024-08-31 12:02 | PTCARENOTE ---
Pt arrived from ICU. Made comfortable, Assesment unchanged from report. VS taken. Call antonio in reach
--- NOTE | 2024-08-31 14:32 | CM ---
Patient transferred to Room 421. Patient has been accepted to [facility] for prison and STR. [employer] insurance auth required. Auth initiated and records faxed to . Phone # to call for follow-up is . PENDING
AUTH # [id number]. Son and physician notified. PASRR sent via [employer]. IMM completed.
[facility] contact: Call main # [phone] and ask for Kailyn Dexter. Brewer Helper will contact her. .
--- NOTE | 2024-08-31 15:24 | W.PN.HOSP.TC ---
Today's Communication/Plan
-
clear for DC
Assessment / Plan
Assessment / Plan
Impression:
73-year-old male was presenting from home with confusion, R facial droop.��Also suspected cognitive impairment underlying.��CT angiogram with left carotid artery stenosis.��MRI negative for stroke
neurology recommending vascular surgery evaluation for symptomatic left carotid artery stenosis.
Vascular surgery, status post left carotid endarterectomy on 08/29
Assessment/plan:
Right facial droop concern for CVA due to CRITICAL STENOSIS >90% LEFT CAROTID BULB / PROXIMAL LEFT ICA
Aspirin 324 mg given in ER
-Continue aspirin 81 mg daily, Lipitor 40 mg
- Appreciate neurology and vascular surgery input
- LDL 51, HgbA1c 6.4
- MRI brain negative for acute infarct
CT head and neck: Moderate irregularity and MOD NARROWING of a LEFT MCA anterior M2 branch. No focal aneurysm. Nasal septal perforation scattered ethmoid maxillary sinus mucosal thickening
Angiogram neck: Critical stenosis> 90% of the LEFT carotid bulb and Proximal Left ICA
Vascular surgery recommending plan for possible CEA 08/29.
08/29
status post left carotid endarterectomy
Acute toxic metabolic encephalopathy likely secondary to marijuana use, alcohol use versus underlying cognitive impairment
- Per son smoked a Marijuana cigarette then became confused and fell
- UDS noted for marijuana and benzos
-Monitor mentation and reorient as necessary. Fall precautions. PT eval.
Leukocytosis likely reactive
Afebrile. No cough. No urinary symptoms. Monitor for now.
improved.
Alcohol abuse
Patient reports 32 ounce beer at least 4 times a week
-Check alcohol level due to current confusion
MSAs screen with protocol
Essential hypertension
- Continue lisinopril 10 mg daily with hold parameters
Hyperlipidemia
LDL 51
Continue atorvastatin 40 mg daily
History of diabetes mellitus
Insulin sliding scale
Diabetic diet
Hemoglobin A1c 6.4
Accu-Cheks with SSI, check HgbA1c
Hold metformin
Active smoker
- Cessation advised
Prior cigarette smoker Qasim 1 pack a day x 45 years
CODE STATUS: Full code
DVT prophylaxis: Lovenox
Diet: Soft and bite-size diet.
Total time spent on today's encounter was 65 minutes which included time spent in counseling the patient/family regarding diagnosis and treatment plan as listed above, goals of care, and symptom management. Case was discussed with nursing staff,
specialists, and care coordinators/case management. All labs and imaging personally reviewed by me. Remainder the time spent in detailed review of previous records, lab data, imaging, and other medical provider documentation.
Anticipated Discharge: Today
Subjective/Interval History
-
Date of Service: August 31, 2024
Patient was seen and examined, denies chest pain or shortness of breath, pending discharge to rehab
Objective Data
-
Labs:
Laboratory Results
08/31/24
05:52
WBC 8.6
Hgb 12.7 L
Hct 36.0 L
Plt Count 179
Sodium 137
Potassium 4.0
Chloride 106
Carbon Dioxide 25
BUN 9
Creatinine 0.5 L
Glucose 114 H
Calcium 8.8
Vital Signs:
Vital Signs
Temp Pulse Resp BP Pulse Ox
97.7 F 79 20 146/82 98
08/31/24 11:00 08/31/24 11:00 08/31/24 11:00 08/31/24 11:00 08/31/24 11:00
I&O
08/30/24 08/31/24 09/01/24
06:59 06:59 06:59
Intake Total 2380 / 2460 880 / 880 960 / 960
Output Total 3300 / 3900 1950 / 1950 225 / 225
Balance -920 / -1440 -1070 / -1070 735 / 735
Physical Exam
-
General: Well Developed, Well Nourished, No Apparent Distress and Comfortable
HEENT: Normocephalic, Atraumatic, Moist Mucous Membranes, No Ptosis, PERRLA, Nose Appears Normal and Other (Left neck incision clean with no sign of infection or bleeding.)
Respiratory: Clear to Auscultation and Non Labored Respirations
Cardiac: Regular Rhythm and S1/S2
Breast: Deferred by me
GI: Soft, Nontender, Nondistended and Normal Bowel Sounds
Genito-urinary: No Costovertebral Tender
Musculoskeletal: No Clubbing, No Cyanosis and No Edema
Skin: Warm
Neuro: Awake, Alert, Oriented (Not fully oriented) and No Motor Deficits
Psych: Calm
Data Reviewed
-
Diagnostic Radiology: Image personally visualized and interpreted and Report Reviewed by me
CT Scan: Image personally visualized and interpreted and Report Reviewed by me
Ultrasound: Image personally visualized and interpreted and Report Reviewed by me
MRI: Image personally visualized and interpreted and Report Reviewed by me
Medical Tests (Nuc Med, Echo etc): Image personally visualized and interpreted and Report Reviewed by me
Labs: Labs Reviewed by me
Old Records: Reviewed
[2024-08-31 17:07] LABS: Glucose - Point of Care 118 mg/dl (70-99)
[2024-08-31] MEDS: LOVENOX 40 MG SC (17:52)
[2024-08-31 21:17] LABS: Glucose - Point of Care 127 mg/dl (70-99)
[2024-08-31] MEDS: ATIVAN 1 MG IV (23:30)
[2024-08-31] MEDS: NSS (PRESERVATIVE FREE) 0.5 ML IV (23:30)
[2024-08-31] MEDS: FLUSH (NSS) 1 FLUSH IV (23:32)
--- NOTE | 2024-08-31 23:37 | PTCARENOTE ---
Pt. becoming very agitated, confused, paranoid, jumping OOB, notified CHRISTINA Pearce, ordered MSAS again and Ativan. Soft restraints were ordered but not needed. Pt. calmed down and fell asleep,
[2024-09-01 03:05] VITALS: BP 114/74
[2024-09-01 06:00] VITALS: BMI 18.8
[2024-09-01 07:00] VITALS: BP 106/69
[2024-09-01] MEDS: NOVOLOG FLEXPEN-LOW RESISTANCE SC ×3 (08:10→16:47)
[2024-09-01] MEDS: VITAMIN B1 100 MG PO ×2 (08:11→20:27)
[2024-09-01] MEDS: PLAVIX 75 MG PO (08:11)
[2024-09-01] MEDS: LIPITOR 40 MG PO (08:11)
[2024-09-01 08:12] LABS: Glucose - Point of Care 107 mg/dl (70-99)
[2024-09-01] MEDS: DESENEX/MITRAZOL/ZEASORB 1 APPLIC TOPICAL ×2 (08:12→20:27)
[2024-09-01] MEDS: FOLVITE 1 MG PO (08:12)
[2024-09-01] MEDS: CELEXA 40 MG PO (08:12)
[2024-09-01] MEDS: ASPIR LOW (ENTERIC COATED) 81 MG PO (08:12)
[2024-09-01] MEDS: ZESTRIL 10 MG PO (08:12)
--- NOTE | 2024-09-01 09:40 | CM ---
Addendum entered by Tanika Dyson 09/01/24 11:58:
Received call from healthcare corporate account director/Kurtis regarding auth. Kurtis confirmed w/ CM the SNF name and address the auth request is for. CM was informed auth is still being reviewed at this time. CM fax number confirmed and phone number to contact for auth
approval.
Original Note:
Chart reviewed. Auth initiated yesterday for SNF at [facility]. Called [facility] to inquire on auth status. Spoke w/ Malu who informed that clinicals were received and auth is still under review at this time
[2024-09-01 12:08] LABS: Glucose - Point of Care 112 mg/dl (70-99)
--- NOTE | 2024-09-01 12:50 | W.PN.HOSP.TC ---
Today's Communication/Plan
-
clear for DC
Assessment / Plan
Assessment / Plan
Impression:
73-year-old male was presenting from home with confusion, R facial droop.��Also suspected cognitive impairment underlying.��CT angiogram with left carotid artery stenosis.��MRI negative for stroke
neurology recommending vascular surgery evaluation for symptomatic left carotid artery stenosis.
Vascular surgery, status post left carotid endarterectomy on 08/29
Physical therapy recommending rehab.
Assessment/plan:
Right facial droop concern for CVA due to CRITICAL STENOSIS >90% LEFT CAROTID BULB / PROXIMAL LEFT ICA
Aspirin 324 mg given in ER
-Continue aspirin 81 mg daily, Lipitor 40 mg
- Appreciate neurology and vascular surgery input
- LDL 51, HgbA1c 6.4
- MRI brain negative for acute infarct
CT head and neck: Moderate irregularity and MOD NARROWING of a LEFT MCA anterior M2 branch. No focal aneurysm. Nasal septal perforation scattered ethmoid maxillary sinus mucosal thickening
Angiogram neck: Critical stenosis> 90% of the LEFT carotid bulb and Proximal Left ICA
Vascular surgery recommending plan for possible CEA 08/29.
08/29
status post left carotid endarterectomy
Acute toxic metabolic encephalopathy likely secondary to marijuana use, alcohol use versus underlying cognitive impairment
- Per son smoked a Marijuana cigarette then became confused and fell
- UDS noted for marijuana and benzos
-Monitor mentation and reorient as necessary. Fall precautions. PT eval.
Leukocytosis likely reactive
Afebrile. No cough. No urinary symptoms. Monitor for now.
improved.
Alcohol abuse
Patient reports 32 ounce beer at least 4 times a week
-Check alcohol level due to current confusion
MSAs screen with protocol
Essential hypertension
- Continue lisinopril 10 mg daily with hold parameters
Hyperlipidemia
LDL 51
Continue atorvastatin 40 mg daily
History of diabetes mellitus
Insulin sliding scale
Diabetic diet
Hemoglobin A1c 6.4
Accu-Cheks with SSI, check HgbA1c
Hold metformin
Active smoker
- Cessation advised
Prior cigarette smoker Qasim 1 pack a day x 45 years
CODE STATUS: Full code
DVT prophylaxis: Lovenox
Diet: Soft and bite-size diet.
Disposition: Medically clear for discharge.
Family communication: Discussed with son at bedside.
Total time spent on today's encounter was 65 minutes which included time spent in counseling the patient/family regarding diagnosis and treatment plan as listed above, goals of care, and symptom management. Case was discussed with nursing staff,
specialists, and care coordinators/case management. All labs and imaging personally reviewed by me. Remainder the time spent in detailed review of previous records, lab data, imaging, and other medical provider documentation.
Anticipated Discharge: Today
Subjective/Interval History
-
Date of Service: September 01, 2024
Patient seen and examined at bedside, feeling tired but otherwise denies any chest pain or shortness of breath, still pending placement.
Objective Data
-
Vital Signs:
Vital Signs
Temp Pulse Resp BP Pulse Ox
98.3 F 73 18 106/69 99
09/01/24 07:00 09/01/24 07:00 09/01/24 07:00 09/01/24 07:00 09/01/24 08:10
I&O
08/31/24 09/01/24 09/02/24
06:59 06:59 06:59
Intake Total 880 / 880 1420 / 1420
Output Total 1950 / 1950 950 / 950
Balance -1070 / -1070 470 / 470
Physical Exam
-
General: Well Developed, Well Nourished, No Apparent Distress and Comfortable
HEENT: Normocephalic, Atraumatic, Moist Mucous Membranes, No Ptosis, PERRLA, Nose Appears Normal and Other (Left neck incision clean with no sign of infection or bleeding.)
Respiratory: Clear to Auscultation and Non Labored Respirations
Cardiac: Regular Rhythm and S1/S2
Breast: Deferred by me
GI: Soft, Nontender, Nondistended and Normal Bowel Sounds
Genito-urinary: No Costovertebral Tender
Musculoskeletal: No Clubbing, No Cyanosis and No Edema
Skin: Warm
Neuro: Awake, Alert, Oriented (Not fully oriented) and No Motor Deficits
Psych: Calm
Data Reviewed
-
Diagnostic Radiology: Image personally visualized and interpreted and Report Reviewed by me
CT Scan: Image personally visualized and interpreted and Report Reviewed by me
Ultrasound: Image personally visualized and interpreted and Report Reviewed by me
MRI: Image personally visualized and interpreted and Report Reviewed by me
Medical Tests (Nuc Med, Echo etc): Image personally visualized and interpreted and Report Reviewed by me
Labs: Labs Reviewed by me
Old Records: Reviewed
[2024-09-01 15:45] VITALS: BP 95/55
[2024-09-01 16:13] LABS: Glucose - Point of Care 136 mg/dl (70-99)
[2024-09-01] MEDS: LOVENOX SC (16:47)
[2024-09-01 22:03] LABS: Glucose - Point of Care 213 mg/dl (70-99)
[2024-09-01 23:32] VITALS: BP 102/67
[2024-09-02 06:00] VITALS: BMI 18.9
[2024-09-02 07:00] VITALS: BP 95/61
[2024-09-02] MEDS: ZESTRIL 10 MG PO (07:42)
[2024-09-02] MEDS: VITAMIN B1 100 MG PO ×2 (07:42→21:33)
[2024-09-02] MEDS: CELEXA 40 MG PO (07:42)
[2024-09-02] MEDS: PLAVIX 75 MG PO (07:42)
[2024-09-02] MEDS: FOLVITE 1 MG PO (07:42)
[2024-09-02] MEDS: ASPIR LOW (ENTERIC COATED) 81 MG PO (07:43)
[2024-09-02] MEDS: DESENEX/MITRAZOL/ZEASORB 1 APPLIC TOPICAL ×2 (07:44→21:33)
[2024-09-02] MEDS: LOVENOX SC (07:45)
[2024-09-02] MEDS: LIPITOR 40 MG PO (07:45)
[2024-09-02 08:02] LABS: Hematocrit 36.8 % (39.0-52.0); Hemoglobin 12.9 g/dL (13.0-18.0); Mean Corp Hgb Conc. 35.1 g/dL (33.0-37.0); Mean Corpuscular Hgb 33.8 pg (27.0-31.0); Mean Corpuscular Volume 96.3 fL (80.0-94.0); Mean Platelet Volume 8.9 fL (7.4-10.4); Platelet Count 210 10^3/uL (130-400); Red Blood Cell Count 3.82 10^6/uL (4.70-6.10); Red Cell Dist. Width 12.2 % (11.5-14.5); White Blood Cell Count 8.1 10^3/uL (4.8-10.8)
[2024-09-02 08:19] LABS: Glucose - Point of Care 136 mg/dl (70-99)
[2024-09-02] MEDS: NOVOLOG FLEXPEN-LOW RESISTANCE SC ×3 (08:26→17:15)
[2024-09-02 08:46] LABS: Blood Urea Nitrogen 15 mg/dl (9-20); Carbon Dioxide 28 mmol/L (22-30); Chloride 104 mmol/L (98-107); Estimated Creatinine Clearance 98 ml/min; Glucose 124 mg/dl (70-99); Potassium 4.3 mmol/L (3.5-5.1); Sodium 137 mmol/L (135-145); eGFR > 60.00
[2024-09-02 12:33] LABS: Glucose - Point of Care 126 mg/dl (70-99)
--- NOTE | 2024-09-02 13:24 | CM ---
Addendum entered by Tanika Dyson 09/02/24 14:11:
Informed hospitalist about P2P, number to call provided, hospitalist will call today
Original Note:
CM received call from [facility]
Peer to peer being offered prior to making determination for SNF by medical records coordinator
P2P request to be filed no later than 09/03 12pm
Call [phone] option 5 for P2P request
Pt's name, and ID # will be needed for P2P request
If P2P not filed, medical records coordinator will provide auth determination without P2P
This info forwarded to covering SHANNAN/Tanika Gonzáles
--- NOTE | 2024-09-02 13:29 | W.PN.HOSP.TC ---
Today's Communication/Plan
-
Medically cleared for discharge to rehab once bed available.
Assessment / Plan
Assessment / Plan
Impression:
73-year-old male was presenting from home with confusion, R facial droop.��Also suspected cognitive impairment underlying.��CT angiogram with left carotid artery stenosis.��MRI negative for stroke
neurology recommending vascular surgery evaluation for symptomatic left carotid artery stenosis.
Vascular surgery, status post left carotid endarterectomy on 08/29
Physical therapy recommending rehab.
Assessment/plan:
Right facial droop concern for CVA due to CRITICAL STENOSIS >90% LEFT CAROTID BULB / PROXIMAL LEFT ICA
Aspirin 324 mg given in ER
-Continue aspirin 81 mg daily, Lipitor 40 mg
- Appreciate neurology and vascular surgery input
- LDL 51, HgbA1c 6.4
- MRI brain negative for acute infarct
CT head and neck: Moderate irregularity and MOD NARROWING of a LEFT MCA anterior M2 branch. No focal aneurysm. Nasal septal perforation scattered ethmoid maxillary sinus mucosal thickening
Angiogram neck: Critical stenosis> 90% of the LEFT carotid bulb and Proximal Left ICA
Vascular surgery recommending plan for possible CEA 08/29.
08/29
status post left carotid endarterectomy
09/02
Medically cleared for discharge to rehab once bed available.
Acute toxic metabolic encephalopathy likely secondary to marijuana use, alcohol use versus underlying cognitive impairment
- Per son smoked a Marijuana cigarette then became confused and fell
- UDS noted for marijuana and benzos
-Monitor mentation and reorient as necessary. Fall precautions. PT eval.
Leukocytosis likely reactive
Afebrile. No cough. No urinary symptoms. Monitor for now.
improved.
Alcohol abuse
Patient reports 32 ounce beer at least 4 times a week
-Check alcohol level due to current confusion
MSAs screen with protocol
Essential hypertension
- Continue lisinopril 10 mg daily with hold parameters
Hyperlipidemia
LDL 51
Continue atorvastatin 40 mg daily
History of diabetes mellitus
Insulin sliding scale
Diabetic diet
Hemoglobin A1c 6.4
Accu-Cheks with SSI, check HgbA1c
Hold metformin
Active smoker
- Cessation advised
Prior cigarette smoker Qasim 1 pack a day x 45 years
CODE STATUS: Full code
DVT prophylaxis: Lovenox
Diet: Soft and bite-size diet.
Disposition: Medically clear for discharge.
Family communication: Discussed with son at bedside.
Total time spent on today's encounter was 65 minutes which included time spent in counseling the patient/family regarding diagnosis and treatment plan as listed above, goals of care, and symptom management. Case was discussed with nursing staff,
specialists, and care coordinators/case management. All labs and imaging personally reviewed by me. Remainder the time spent in detailed review of previous records, lab data, imaging, and other medical provider documentation.
Anticipated Discharge: Today
Subjective/Interval History
-
Date of Service: September 02, 2024
Patient seen and examined at bedside, patient tired otherwise denies any chest pain or shortness of breath, no abdominal pain, no nausea, no vomiting, no diarrhea or constipation.
Objective Data
-
Labs:
Laboratory Results
09/02/24
07:18
WBC 8.1
Hgb 12.9 L
Hct 36.8 L
Plt Count 210
Sodium 137
Potassium 4.3
Chloride 104
Carbon Dioxide 28
BUN 15
Creatinine 0.6 L
Glucose 124 H
Calcium 9.0
Vital Signs:
Vital Signs
Temp Pulse Resp BP Pulse Ox
97.9 F 68 18 95/61 99
09/02/24 07:00 09/02/24 07:00 09/02/24 07:00 09/02/24 07:00 09/02/24 07:45
I&O
09/01/24 09/02/24 09/03/24
06:59 06:59 06:59
Intake Total 1420 / 1420 720 / 720
Output Total 950 / 950 300 / 300
Balance 470 / 470 420 / 420
Physical Exam
-
General: Well Developed, Well Nourished, No Apparent Distress and Comfortable
HEENT: Normocephalic, Atraumatic, Moist Mucous Membranes, No Ptosis, PERRLA, Nose Appears Normal and Other (Left neck incision clean with no sign of infection or bleeding.)
Respiratory: Clear to Auscultation and Non Labored Respirations
Cardiac: Regular Rhythm and S1/S2
Breast: Deferred by me
GI: Soft, Nontender, Nondistended and Normal Bowel Sounds
Genito-urinary: No Costovertebral Tender
Musculoskeletal: No Clubbing, No Cyanosis and No Edema
Skin: Warm
Neuro: Awake, Alert, Oriented (Not fully oriented) and No Motor Deficits
Psych: Calm
Data Reviewed
-
Diagnostic Radiology: Image personally visualized and interpreted and Report Reviewed by me
CT Scan: Image personally visualized and interpreted and Report Reviewed by me
Ultrasound: Image personally visualized and interpreted and Report Reviewed by me
MRI: Image personally visualized and interpreted and Report Reviewed by me
Medical Tests (Nuc Med, Echo etc): Image personally visualized and interpreted and Report Reviewed by me
Labs: Labs Reviewed by me
Old Records: Reviewed
[2024-09-02 15:00] VITALS: BP 131/74
[2024-09-02 17:11] LABS: Glucose - Point of Care 207 mg/dl (70-99)
[2024-09-02 21:03] LABS: Glucose - Point of Care 150 mg/dl (70-99)
[2024-09-02 23:52] VITALS: BP 124/61
[2024-09-03 06:00] VITALS: BMI 18.9
[2024-09-03 07:00] VITALS: BP 118/63
[2024-09-03 08:27] LABS: Glucose - Point of Care 133 mg/dl (70-99)
[2024-09-03] MEDS: CELEXA 40 MG PO (08:38)
[2024-09-03] MEDS: PLAVIX 75 MG PO (08:38)
[2024-09-03] MEDS: LIPITOR 40 MG PO (08:38)
[2024-09-03] MEDS: VITAMIN B1 100 MG PO (08:38)
[2024-09-03] MEDS: ASPIR LOW (ENTERIC COATED) 81 MG PO (08:38)
[2024-09-03] MEDS: ZESTRIL 10 MG PO (08:38)
[2024-09-03] MEDS: NOVOLOG FLEXPEN-LOW RESISTANCE SC (08:38)
[2024-09-03] MEDS: FOLVITE 1 MG PO (08:38)
[2024-09-03] MEDS: DESENEX/MITRAZOL/ZEASORB 1 APPLIC TOPICAL (08:39)
--- NOTE | 2024-09-03 09:00 | CM ---
Received message from [facility], after P2P review yesterday, medical staff manager has denied skilled auth request
Family has the option to appeal denial, CM to discuss w/ family
--- NOTE | 2024-09-03 11:39 | W.PN.HOSP.TC ---
Today's Communication/Plan
-
await dispo
medically stable for dc
Assessment / Plan
Assessment / Plan
General: Well Developed, Well Nourished, No Apparent Distress and Comfortable
HEENT: Normocephalic, Atraumatic, Moist Mucous Membranes, No Ptosis, PERRLA, Nose Appears Normal and Other (Left neck incision clean with no sign of infection or bleeding.)
Respiratory: Clear to Auscultation and Non Labored Respirations
Cardiac: Regular Rhythm and S1/S2
Breast: Deferred by me
GI: Soft, Nontender, Nondistended and Normal Bowel Sounds
Genito-urinary: No Costovertebral Tender
Musculoskeletal: No Clubbing, No Cyanosis and No Edema
Skin: Warm
Neuro: Awake, Alert, Oriented (Not fully oriented) and No Motor Deficits
Psych: Calm
Impression:
73-year-old male was presenting from home with confusion, R facial droop.��Also suspected cognitive impairment underlying.��CT angiogram with left carotid artery stenosis.��MRI negative for stroke
neurology recommending vascular surgery evaluation for symptomatic left carotid artery stenosis.
Vascular surgery, status post left carotid endarterectomy on 08/29
Physical therapy recommending rehab.
Assessment/plan:
Right facial droop concern for CVA due to CRITICAL STENOSIS >90% LEFT CAROTID BULB / PROXIMAL LEFT ICA
Aspirin 324 mg given in ER
-Continue aspirin 81 mg daily, Lipitor 40 mg . Plavix also started per neurology. Plan for DAPT 21d? will clarify w/ neurology.
- Appreciate neurology and vascular surgery input
- LDL 51, HgbA1c 6.4
- MRI brain negative for acute infarct
CT head and neck: Moderate irregularity and MOD NARROWING of a LEFT MCA anterior M2 branch. No focal aneurysm. Nasal septal perforation scattered ethmoid maxillary sinus mucosal thickening
Angiogram neck: Critical stenosis> 90% of the LEFT carotid bulb and Proximal Left ICA
Vascular surgery status post left carotid endarterectomy
Acute toxic metabolic encephalopathy likely secondary to marijuana use, alcohol use versus underlying cognitive impairment
- Per son smoked a Marijuana cigarette then became confused and fell
- UDS noted for marijuana and benzos
-Monitor mentation and reorient as necessary. Fall precautions. PT eval.
Leukocytosis likely reactive
Afebrile. No cough. No urinary symptoms. Monitor for now.
improved.
Alcohol abuse
Patient reports 32 ounce beer at least 4 times a week
-Check alcohol level due to current confusion
MSAs screen with protocol
Essential hypertension
- Continue lisinopril 10 mg daily with hold parameters. Bp well controlled 118/63
Hyperlipidemia
LDL 51
Continue atorvastatin 40 mg daily
History of diabetes mellitus
Insulin sliding scale
Diabetic diet
Hemoglobin A1c 6.4
Accu-Cheks with SSI, check HgbA1c
Hold metformin
Active smoker
- Cessation advised
Prior cigarette smoker Qasim 1 pack a day x 45 years
CODE STATUS: Full code
DVT prophylaxis: Lovenox
Diet: Soft and bite-size diet.
Disposition: Medically clear for discharge.
Anticipated Discharge: Today
Subjective/Interval History
-
Date of Service: September 03, 2024
resting in bed
denies any neck pain
tolerating diet
Objective Data
-
Vital Signs:
Vital Signs
Temp Pulse Resp BP Pulse Ox
97.7 F 64 16 118/63 98
09/03/24 07:00 09/03/24 07:00 09/03/24 07:00 09/03/24 07:00 09/03/24 07:00
I&O
09/02/24 09/03/24 09/04/24
06:59 06:59 06:59
Intake Total 720 / 720 840 / 840
Output Total 300 / 300 1000 / 1000
Balance 420 / 420 -160 / -160
--- NOTE | 2024-09-03 11:48 | CM ---
Addendum entered by Marie Shah 09/03/24 12:05:
CM offered home care services to pt's son, however he declined this, as well, stating home care doesn't do anything that he needs.
Original Note:
CM contacted pt's son, Rick Matute, to discuss denial for SNF. I advised him that family can appeal the discharge, however he did not want to do that. He is going to come to pick his father up after he is finished working today.
SHANNAN provided Rick with the phone number for the [facility] [employer] to contact to discuss in-home assistance for his father. [facility]: [phone]
[2024-09-03 12:10] LABS: Glucose - Point of Care 193 mg/dl (70-99)
[2024-09-03] MEDS: NOVOLOG FLEXPEN-LOW RESISTANCE 1 UNITS SC (12:28)
--- NOTE | 2024-09-03 13:30 | W.DCSUMMARY ---
Discharge Summary
Discharge Data
Date of Admission: 08/26/24
Date of Discharge: 09/03/24
-
Pending Results: No
Hospital Course
73-year-old male past medical history of alcohol abuse, tobacco abuse, hyperlipidemia, diabetes mellitus, primary hypertension, who is presenting from home with confusion. Patient upon admission had a urinary drug screen which was found to be
positive for marijuana. Patient also had a subtle right facial droop and underwent CT head was negative for acute pathology. Patient underwent CT angiogram of the head and neck which showed patient with severe left carotid artery stenosis. Per
neurology patient is symptomatic from left carotid artery stenosis and vascular surgery evaluated patient. Patient was continued on aspirin and Plavix were added. Patient received Plavix loading dose and subsequently per neurology continue dual
antiplatelet regimen for 21 days then stop Plavix and continue with aspirin. Patient underwent left carotid endarterectomy. Patient was monitored in the ICU postop. Patient did well. Patient blood pressure was controlled. Patient was tolerating
diet. Patient was eval by physical and Occupational Therapy. Patient will be discharged home with close supervision by family and caregivers.
Discharge Plan
-
Patient Disposition: Home with Home Care
Discharge Diagnosis/Procedures: Left carotid stenosis s/p left carotid endarterectomy
Acute metabolic encephalopathy.
Essential hypertension.
Hyperlipidemia.
Condition: Fair
Diet: As tolerated and Diabetic, Carb Controlled
Activity: No strenuous activity
Driving Restrictions: Not until seen by your Dr
Bathing Restrictions: OK to Shower
Activity Restrictions/Additional Instructions:
Continue taking aspirin plus Plavix for additional 13 days together then stop Plavix and continue with aspirin
Stand Alone Forms: Vascular Surg Discharge Instr
Referrals:
Walt Saldivar MD [Family Provider] - in less than 1 week
Nathan Corral MD [Active, Neurology] - in three to four weeks
Carlee Oneill CRNP [Specified Professional Personl, Vascular Surgery] - 09/13/24 9:30 am
Prescriptions:
New
acetaminophen 325 mg Tablet
650 mg PO Q4HPRN PRN (Reason: mild pain/AMANDA/temp> 100.4F) Qty: 0 0RF
lisinopril 10 mg Tablet
10 mg PO DAILY Qty: 0 0RF
folic acid 1 mg Tablet
1 mg PO DAILY Qty: 0 0RF
thiamine mononitrate (vit B1) 100 mg Tablet
100 mg PO BID Qty: 0 0RF
aspirin 81 mg Tablet,Delayed Release (Dr/Ec)
81 mg PO DAILY 30 Days Qty: 30 0RF
clopidogrel [Plavix] 75 mg tablet
75 mg PO DAILY Qty: 13 0RF
Continued
atorvastatin [Lipitor] 40 mg Tablet
80 mg PO DAILY
Flonase Allergy Relief
1 spray inhalation DAILYPRN PRN (Reason: Rhinorrhea)
citalopram
40 mg PO DAILY
ezetimibe
10 mg PO DAILY
fexofenadine
180 mg PO DAILY PRN (Reason: Seasonal allergies)
metformin
500 mg PO BID
diltiazem HCl 180 mg Capsule,Extended Release 24hr
180 mg PO DAILY
Discontinued
Aspir-81
10 mg PO DAILY
clonazepam
0.5 mg PO DAILY PRN (Reason: Anxiety)
Patient Comments:
Last prescription was picked up 1 year ago July 2023 per [facility]
Discharge Orders:
Discharge Patient (As Directed); Ordered 09/03/24
Ordered By: Mayito Rose
Discharge Date and Time
Print Language: AFGHAN
[2024-09-03 16:14] VITALS: BP 162/97
== END 2024-09-03 16:24 | disposition home health service (06) | DRG 37 ==
LOC: 4 WEST ACU 00:45
PROVIDERS: Clinical Nurse Specialist Family Health; General Practice; Nurse Practitioner Acute Care; ADMITTING PHYSICIAN Internal Medicine; ATTENDING PHYSICIAN Hospitalist; CONSULT PHYSICIAN Internal Medicine Critical Care Medicine; CONSULT PHYSICIAN Psychiatry & Neurology Clinical Neurophysiology; EMERGENCY PHYSICIAN Emergency Medicine; FAMILY PHYSICIAN Family Medicine; OTHER PHYSICIAN Surgery Vascular Surgery
PROC: 03CJ0ZZ Extirpation of Matter from Left Common Carotid Artery, Open Approach (ICD-10-PCS; 2024-08-29)
PROC: 03UJ0KZ Supplement Left Common Carotid Artery with Nonautologous Tissue Substitute, Open Approach (ICD-10-PCS; 2024-08-29)
DX: I65.22 Occlusion and stenosis of left carotid artery (principal); G92.8 Other toxic encephalopathy; I63.9 Cerebral infarction, unspecified; F17.210 Nicotine dependence, cigarettes, uncomplicated; F17.290 Nicotine dependence, other tobacco product, uncomplicated; I10 Essential (primary) hypertension; E11.51 Type 2 diabetes mellitus with diabetic peripheral angiopathy without gangrene; F10.10 Alcohol abuse, uncomplicated; E78.00 Pure hypercholesterolemia, unspecified; Z79.899 Other long term (current) drug therapy; Z79.82 Long term (current) use of aspirin
CPT/HCPCS: 88304; 88311; 35301; 70450; 70496; 70498; 70551; 80048; 80053; 80061; 80306; 80307; 81003; 82010; 82077; 82962; 82977; 83036; 83735; 84100; 84484; 85025; 85027; 85610; 85730; 86780; 86850; 86900; 86901; 87070; 92523; 92526; 92610; 93005; 95938; 95941; 95955; 97116; 97163; 97167; 97168; 97530; 97535; 99291; Q9967

== ENCOUNTER → 2024-10-11 13:23 | Outpatient (REF) | payer OTHER, SELFPAY | LOC: RAD 13:23 | PROVIDERS: ATTENDING PHYSICIAN Registered Nurse; FAMILY PHYSICIAN Family Medicine | DX: I65.23 Occlusion and stenosis of bilateral carotid arteries (principal) | CPT/HCPCS: 93880 ==